=== PATIENT | female | born 1985 | race Two or more races ===

== ENCOUNTER 2017-06-30 18:12 | Emergency (ER) | payer MEDICAID ==
[~2017-06-30] VITALS: Ht 149.9 cm; Wt 70.3 kg
[2017-06-30 19:23] VITALS: BP 113/79
[2017-06-30 21:03] LABS: Urine Bilirubin Negative (Negative); Urine Blood Negative /uL (Negative); Urine Color Yellow (Yellow); Urine Glucose Normal (Normal); Urine Ketone Negative (Negative); Urine Mucus FEW (None Seen); Urine Nitrite Negative (Negative); Urine RBC 5 /hpf (0 - 4); Urine Squamous Epithelial Cell FEW /hpf (<5); Urine pH 5.5 (5.0-8.0)
[2017-06-30 21:16] LABS: Basophils # (auto) 0.1 uL; Basophils % (auto) 1.1 % (0.0-2.0); Eosinophils # (auto) 0 uL; Eosinophils % (auto) 0.1 % (0.0-7.0); Hematocrit 39.3 % (36.0-46.0); Hemoglobin 12.9 g/dL (12.2-16.2); Lymphocytes # (auto) 1.5 uL; Lymphocytes % (auto) 11.4 % (10.0-50.0); Mean Corpuscular Hemoglobin 27.9 pg (28.0-32.0); Mean Corpuscular Hgb Conc. 32.9 g/dL (32.0-36.0); Mean Corpuscular Volume 84.9 fL (80.0-100.0); Mean Platelet Volume 6.8 fL (6.9-10.8); Monocytes # (auto) 0.4 uL; Monocytes % (auto) 2.7 % (0.0-12.0); Neutrophils # (auto) 11.4 uL; Neutrophils % (auto) 84.7 % (37.0-80.0); Platelet Count (auto) 417 10^3/uL (140-450); Red Cell Distribution Width 13.5 % (11.8-14.3); White Blood Cell 13.4 10^3/uL (4.4-10.8)
[2017-06-30 21:34] LABS: Albumin 3.8 g/dL (3.4-5.0); Anion Gap 7 (5-15); Aspartate Aminotransferase 93 U/L (15-37); Blood Urea Nitrogen 13 mg/dL (7-18); Calcium 8.7 mg/dL (8.5-10.1); Carbon Dioxide 28 mmol/L (21-32); Chloride 105 mmol/L (98-107); GFR African American 176 mL/min; GFR Non-African American 145 mL/min; Glucose 125 mg/dL (74-106); Magnesium 2.2 mg/dL (1.6-2.6); Potassium 4.3 mmol/L (3.5-5.1); Sodium 140 mmol/L (136-145)
[2017-06-30 21:38] LABS: Alkaline Phosphatase 106 U/L (45-117); Bilirubin, Total 0.3 mg/dL (0.2-1.0); Total Protein 7.9 g/dL (6.4-8.2)
== END 2017-07-01 05:14 | disposition left against medical advice (07) ==
LOC: ER 18:49
DX: R07.9 Chest pain, unspecified (principal); R51 Headache; Z53.21 Procedure and treatment not carried out due to patient leaving prior to being seen by health care provider
CPT/HCPCS: 36415; 70450; 71010; 80053; 81001; 83735; 84443; 84484; 85025; 93005

== ENCOUNTER 2017-11-25 08:19 | Inpatient (IN) | payer MEDICAID ==
[~2017-11-25] VITALS: Ht 149.9 cm; Wt 78.2 kg
[2017-11-25] MEDS ORDERED: SODIUM CHLORIDE 0.9% 1,000 ML IV ONE ×2 (08:53)
[2017-11-25] MEDS ORDERED: ONDANSETRON HCL 4 MG/2 ML VIAL IV ONE (09:00)
[2017-11-25] MEDS ORDERED: NALBUPHINE HCL 10 MG/1ml INJECTION IV ONE (09:00)
[2017-11-25] MEDS ORDERED: IOHEXOL 300 MG/ML 100ML BOTTLE IJ ONE (09:13)
[2017-11-25 09:19] LABS: Basophils # (auto) 0.1 uL; Eosinophils # (auto) 0.2 uL; Eosinophils % (auto) 2.2 % (0.0-7.0); Hematocrit 39.4 % (36.0-46.0); Lymphocytes # (auto) 1.8 uL; Lymphocytes % (auto) 20.9 % (10.0-50.0); Mean Corpuscular Hemoglobin 27.4 pg (28.0-32.0); Mean Corpuscular Hgb Conc. 32.9 g/dL (32.0-36.0); Mean Corpuscular Volume 83.3 fL (80.0-100.0); Monocytes # (auto) 0.5 uL; Monocytes % (auto) 5.5 % (0.0-12.0); Neutrophils # (auto) 6.2 uL; Neutrophils % (auto) 70.4 % (37.0-80.0); Platelet Count (auto) 383 10^3/uL (140-450); Red Blood Cells 4.73 10^6/uL (4.0-5.20); Red Cell Distribution Width 13.4 % (11.8-14.3); White Blood Cell 8.8 10^3/uL (4.4-10.8)
[2017-11-25 09:40] LABS: Albumin 3.5 g/dL (3.4-5.0); BUN/Creatinine Ratio 25.5; Bilirubin, Total 0.3 mg/dL (0.2-1.0); Calcium 8.4 mg/dL (8.5-10.1); Potassium 3.8 mmol/L (3.5-5.1); Total Protein 7.4 g/dL (6.4-8.2)
[2017-11-25] MEDS ORDERED: GASTROGRAFIN 120 ML SOL ONE (12:56)
[2017-11-25] MEDS ORDERED: FLEET ENEMA(ADULT) 135 ML PR ONE (13:15)
[2017-11-25] MEDS ORDERED: ACETAMINOPHEN 500 MG TAB PO PRN (14:15)
[2017-11-25] MEDS ORDERED: cefTRIAXone 1GM/10ml IVPUSH 10 ML IV ONE (14:15)
[2017-11-25] MEDS: SODIUM CHLORIDE 0.9% 1,000 ML IV SCH ×2 (14:15→23:57)
[2017-11-25] MEDS ORDERED: LORazepam 0.5 MG TAB PO PRN (14:15)
[2017-11-25] MEDS: FAMOTIDINE (10MG/ML) 2ML VL IV SCH (14:15)
[2017-11-25] MEDS: MORPHINE SULFATE 4 MG/ML SYR/VIAL IV PRN (15:03)
[2017-11-25] MEDS: PROMETHAZINE HCL 25 MG/ML 1ML IV PRN (15:03)
[2017-11-25 16:42] VITALS: BP 112/60
[2017-11-25] MEDS: metroNIDAZOLE 500MG/100ML 100 ML IV SCH ×2 (18:08→23:57)
[2017-11-25] MEDS: HYDROcodone-ACET 5/325MG TAB PO PRN (18:27)
[2017-11-25 22:00] VITALS: BP 96/58
[2017-11-26] MEDS: HYDROcodone-ACET 5/325MG TAB PO PRN ×2 (04:00→11:30)
[2017-11-26] MEDS: metroNIDAZOLE 500MG/100ML 100 ML IV SCH ×3 (04:41→17:50)
[2017-11-26] MEDS: FAMOTIDINE (10MG/ML) 2ML VL IV SCH ×2 (04:41→14:44)
[2017-11-26 05:00] VITALS: BP 104/55
[2017-11-26 07:51] VITALS: BP 96/61
[2017-11-26] MEDS: SODIUM CHLORIDE 0.9% 1,000 ML IV SCH ×2 (09:00→20:36)
[2017-11-26] MEDS: cefTRIAXone 1GM/10ml IVPUSH 10 ML IV SCH (09:23)
[2017-11-26 09:44] LABS: INR 0.98 (0.9-1.15); Partial Thromboplastin Time 26.7 sec (22.64-33.71); Prothrombin Time 10.7 sec (9.37-12.3)
[2017-11-26 12:27] VITALS: BP 109/70
[2017-11-26] MEDS: MORPHINE SULFATE 4 MG/ML SYR/VIAL IV PRN (14:45)
[2017-11-26 17:22] VITALS: BP 125/58
[2017-11-26] MEDS: PROMETHAZINE HCL 25 MG/ML 1ML IV PRN (17:49)
[2017-11-26] MEDS ORDERED: PROMETHAZINE HCL 25 MG/ML 1ML IV ONE (19:00)
[2017-11-26 22:00] VITALS: BP 94/48
[2017-11-27] MEDS: metroNIDAZOLE 500MG/100ML 100 ML IV SCH ×4 (00:02→18:17)
[2017-11-27] MEDS: FAMOTIDINE (10MG/ML) 2ML VL IV SCH ×2 (03:00→14:44)
[2017-11-27 05:00] VITALS: BP 97/54
[2017-11-27] MEDS: SODIUM CHLORIDE 0.9% 1,000 ML IV SCH ×2 (06:18→16:05)
[2017-11-27] MEDS: HYDROcodone-ACET 5/325MG TAB PO PRN ×2 (07:50→14:44)
[2017-11-27 09:00] VITALS: BP 104/66
[2017-11-27] MEDS: cefTRIAXone 1GM/10ml IVPUSH 10 ML IV SCH (09:24)
[2017-11-27 13:00] VITALS: BP 101/63
[2017-11-27 17:00] VITALS: BP 105/67
[2017-11-27] MEDS: TEMAZEPAM 15 MG CAP PO PRN (20:47)
[2017-11-27 22:00] VITALS: BP 110/73
[2017-11-28] MEDS: SODIUM CHLORIDE 0.9% 1,000 ML IV SCH ×3 (00:44→23:03)
[2017-11-28] MEDS: metroNIDAZOLE 500MG/100ML 100 ML IV SCH ×4 (00:44→17:28)
[2017-11-28] MEDS: FAMOTIDINE (10MG/ML) 2ML VL IV SCH ×2 (02:15→13:32)
[2017-11-28 05:00] VITALS: BP 95/64
[2017-11-28] MEDS: cefTRIAXone 1GM/10ml IVPUSH 10 ML IV SCH (08:55)
[2017-11-28] MEDS: HYDROcodone-ACET 5/325MG TAB PO PRN (08:56)
[2017-11-28 09:00] VITALS: BP 106/60
[2017-11-28 12:53] VITALS: BP 114/66
[2017-11-28 17:00] VITALS: BP 115/64
[2017-11-28] MEDS ORDERED: LEVOFLOXACIN 500MG 100 ML IV ONE (17:45)
[2017-11-28 22:00] VITALS: BP 111/68
[2017-11-28] MEDS: MORPHINE SULFATE 4 MG/ML SYR/VIAL IV PRN (23:03)
[2017-11-28] MEDS: TEMAZEPAM 15 MG CAP PO PRN (23:41)
[2017-11-29] MEDS: metroNIDAZOLE 500MG/100ML 100 ML IV SCH ×4 (00:09→18:05)
[2017-11-29 05:00] VITALS: BP 93/57
[2017-11-29 06:00] LABS: Basophils # (auto) 0 uL; Basophils % (auto) 0.3 % (0.0-2.0); Eosinophils # (auto) 0.3 uL; Eosinophils % (auto) 2.6 % (0.0-7.0); Hematocrit 37.3 % (36.0-46.0); Hemoglobin 12.3 g/dL (12.2-16.2); Lymphocytes # (auto) 2.2 uL; Lymphocytes % (auto) 22.2 % (10.0-50.0); Mean Corpuscular Hemoglobin 27.8 pg (28.0-32.0); Mean Corpuscular Volume 84.1 fL (80.0-100.0); Monocytes # (auto) 0.7 uL; Monocytes % (auto) 7.3 % (0.0-12.0); Neutrophils # (auto) 6.7 uL; Neutrophils % (auto) 67.6 % (37.0-80.0); Nucleated Red Blood Cells % 0.1 %; Platelet Count (auto) 350 10^3/uL (140-450); Red Blood Cells 4.43 10^6/uL (4.0-5.20); Red Cell Distribution Width 13.7 % (11.8-14.3)
[2017-11-29] MEDS: FAMOTIDINE (10MG/ML) 2ML VL IV SCH ×2 (06:06→15:31)
[2017-11-29 06:12] LABS: INR 1.03 (0.9-1.15); Partial Thromboplastin Time 27.8 sec (22.64-33.71); Prothrombin Time 11.2 sec (9.37-12.3)
[2017-11-29 06:16] LABS: Albumin 2.7 g/dL (3.4-5.0); Calcium 7.6 mg/dL (8.5-10.1); Potassium 3.1 mmol/L (3.5-5.1)
[2017-11-29 06:21] LABS: Bilirubin, Total 0.2 mg/dL (0.2-1.0); Total Protein 5.9 g/dL (6.4-8.2)
[2017-11-29] MEDS ORDERED: BUPIVACAINE 0.25% INJ 50ML VIAL ONE (06:44)
[2017-11-29] MEDS ORDERED: ceFAZolin 1GM VL ONE (06:44)
[2017-11-29] MEDS ORDERED: POVIDONE IODINE 10 % TOPICAL OINT 30GM TOP ONE (06:44)
[2017-11-29] MEDS ORDERED: LIDOCAINE W/ EPINEPHRINE 2% INJ 20ML VIAL ONE (06:44)
[2017-11-29] MEDS ORDERED: BUPIVACAINE W/ EPINEPH 0.25% INJ 50ML MDV ONE (06:44)
[2017-11-29] MEDS ORDERED: LIDOCAINE 1% HCL (LOCAL ANESTH.) INJ 20ML MDV ONE ×2 (06:44→07:17)
[2017-11-29] MEDS ORDERED: ceFAZolin 1GM/50ML 50 ML IV ONE (07:12)
[2017-11-29] MEDS ORDERED: SUCCINYLCHOLINE CHLORIDE 20 MG/ML 10ML VIAL IV ONE (07:17)
[2017-11-29] MEDS ORDERED: MIDAZOLAM HCL 1MG/1ML-2 ML VIAL ONE (07:20)
[2017-11-29] MEDS ORDERED: fentaNYL CITRATE 100 MCG/2 ML VL ONE (07:20)
[2017-11-29] MEDS ORDERED: ROCURONIUM 10MG/ML 10ML VIAL IV ONE (07:21)
[2017-11-29] MEDS ORDERED: PROPOFOL 10 MG/ML 20 ML IV ONE (07:21)
[2017-11-29] MEDS ORDERED: METOCLOPRAMIDE HCL 5MG/ml INJ 2ml VIAL ONE (07:25)
[2017-11-29] MEDS ORDERED: ONDANSETRON HCL 4 MG/2 ML VIAL IV ONE (08:00)
[2017-11-29] MEDS ORDERED: KETOROLAC TROMETH 30 MG/ML 1ML VIAL ONE (08:00)
[2017-11-29] MEDS: SODIUM CHLORIDE 0.9% 1,000 ML IV SCH ×2 (08:05→18:05)
[2017-11-29] MEDS ORDERED: GLYCOPYRROLATE 0.2 MG/ML 1ML VIAL ONE (08:08)
[2017-11-29] MEDS ORDERED: NEOSTIGMINE 1 MG/ML INJ (10mg/10ML VIAL) ONE (08:08)
[2017-11-29] MEDS ORDERED: POTASSIUM CHL 20MEQ/100ML 100 ML IV ONE (08:15)
[2017-11-29] MEDS: MORPHINE SULFATE 4 MG/ML SYR/VIAL IV PRN ×4 (09:16→16:27)
[2017-11-29 10:00] VITALS: BP 121/80
[2017-11-29 13:00] VITALS: BP 110/72
[2017-11-29] MEDS: LEVOFLOXACIN 500MG 100 ML IV SCH (15:32)
[2017-11-29 16:51] VITALS: BP 107/68
[2017-11-29] MEDS: PROMETHAZINE HCL 25 MG/ML 1ML IV PRN (18:04)
[2017-11-29] MEDS: HYDROcodone-ACET 5/325MG TAB PO PRN (18:05)
[2017-11-29 22:00] VITALS: BP 100/67
[2017-11-30] MEDS: metroNIDAZOLE 500MG/100ML 100 ML IV SCH ×5 (00:28→23:51)
[2017-11-30] MEDS: PROMETHAZINE HCL 25 MG/ML 1ML IV PRN ×3 (00:28→22:32)
[2017-11-30] MEDS: HYDROcodone-ACET 5/325MG TAB PO PRN ×2 (00:28→13:42)
[2017-11-30] MEDS: FAMOTIDINE (10MG/ML) 2ML VL IV SCH ×2 (02:09→13:42)
[2017-11-30] MEDS: SODIUM CHLORIDE 0.9% 1,000 ML IV SCH ×3 (04:22→23:52)
[2017-11-30 05:00] VITALS: BP 92/57
[2017-11-30 06:36] LABS: BUN/Creatinine Ratio 13.6; Calcium 7.7 mg/dL (8.5-10.1); Potassium 3.5 mmol/L (3.5-5.1)
[2017-11-30] MEDS: MORPHINE SULFATE 4 MG/ML SYR/VIAL IV PRN ×2 (08:12→22:34)
[2017-11-30 09:00] VITALS: BP 124/84
[2017-11-30] MEDS: LEVOFLOXACIN 500MG 100 ML IV SCH (09:01)
[2017-11-30] MEDS ORDERED: LACTULOSE 20Gm/30ML SOLN PO PRN (12:45)
[2017-11-30 13:00] VITALS: BP 122/73
[2017-11-30 17:00] VITALS: BP 137/87
[2017-11-30] MEDS: BOOST PLUS 8 ounce PO SCH (17:35)
[2017-11-30 22:00] VITALS: BP 104/68
[2017-12-01] MEDS: FAMOTIDINE (10MG/ML) 2ML VL IV SCH ×2 (02:22→12:40)
[2017-12-01 05:26] VITALS: BP 110/69
[2017-12-01 05:58] LABS: Basophils # (auto) 0 uL; Basophils % (auto) 0.1 % (0.0-2.0); Eosinophils # (auto) 0.4 uL; Eosinophils % (auto) 4.3 % (0.0-7.0); Hematocrit 37.4 % (36.0-46.0); Hemoglobin 12.4 g/dL (12.2-16.2); Lymphocytes # (auto) 1.6 uL; Lymphocytes % (auto) 15.5 % (10.0-50.0); Mean Corpuscular Hgb Conc. 33.2 g/dL (32.0-36.0); Mean Corpuscular Volume 84.3 fL (80.0-100.0); Monocytes # (auto) 0.5 uL; Monocytes % (auto) 4.7 % (0.0-12.0); Neutrophils # (auto) 7.8 uL; Neutrophils % (auto) 75.4 % (37.0-80.0); Platelet Count (auto) 379 10^3/uL (140-450); Red Blood Cells 4.43 10^6/uL (4.0-5.20); Red Cell Distribution Width 13.9 % (11.8-14.3); White Blood Cell 10.4 10^3/uL (4.4-10.8)
[2017-12-01] MEDS: metroNIDAZOLE 500MG/100ML 100 ML IV SCH ×3 (06:01→16:30)
[2017-12-01 06:10] LABS: BUN/Creatinine Ratio 15.4; Potassium 3.2 mmol/L (3.5-5.1)
[2017-12-01] MEDS: BOOST PLUS 8 ounce PO SCH ×3 (08:00→17:44)
[2017-12-01 08:14] VITALS: BP 108/69
[2017-12-01 08:34] VITALS: BP 108/69
[2017-12-01] MEDS: SODIUM CHLORIDE 0.9% 1,000 ML IV SCH (09:12)
[2017-12-01] MEDS: LEVOFLOXACIN 500MG 100 ML IV SCH (09:12)
[2017-12-01] MEDS: HYDROcodone-ACET 5/325MG TAB PO PRN ×2 (10:41→16:30)
[2017-12-01 11:51] VITALS: BP 118/79
[2017-12-01 16:34] VITALS: BP 113/48
[2017-12-01] MEDS: POTASSIUM CHL 20 Meq TABLET PO SCH ×2 (17:50→22:19)
[2017-12-01 21:35] VITALS: BP 109/79
[2017-12-01] MEDS: MORPHINE SULFATE 4 MG/ML SYR/VIAL IV PRN (22:19)
[2017-12-01] MEDS: TEMAZEPAM 15 MG CAP PO PRN (22:26)
[2017-12-02] MEDS: SODIUM CHLORIDE 0.9% 1,000 ML IV SCH ×3 (00:37→16:05)
[2017-12-02] MEDS: metroNIDAZOLE 500MG/100ML 100 ML IV SCH ×3 (00:38→12:00)
[2017-12-02 05:00] VITALS: BP 104/56
[2017-12-02] MEDS: HYDROcodone-ACET 5/325MG TAB PO PRN ×2 (05:35→12:21)
[2017-12-02] MEDS: FAMOTIDINE (10MG/ML) 2ML VL IV SCH ×2 (05:35→14:15)
[2017-12-02 07:53] VITALS: BP 102/59
[2017-12-02] MEDS: BOOST PLUS 8 ounce PO SCH ×2 (10:09→12:20)
[2017-12-02] MEDS: POTASSIUM CHL 20 Meq TABLET PO SCH (10:10)
[2017-12-02] MEDS: LEVOFLOXACIN 500MG 100 ML IV SCH (10:10)
[2017-12-02] MEDS: PROMETHAZINE HCL 25 MG/ML 1ML IV PRN (12:20)
[2017-12-02 12:31] VITALS: BP 106/71
[2017-12-02 15:07] VITALS: BP 106/71
== END 2017-12-02 17:16 | disposition home or self-care (01) | DRG 228 ==
LOC: ER 08:19 → OVERFLOW 08:20 → WEST WING 15:09
PROVIDERS: ADMIT Internal Medicine; ATTEND Internal Medicine Pulmonary Disease
PROC: 0DTU0ZZ Resection of Omentum, Open Approach (ICD-10-PCS; 2017-11-29)
PROC: 0YQ60ZZ Repair Left Inguinal Region, Open Approach (ICD-10-PCS; principal; 2017-11-29 07:00)
DX: K40.90 Unilateral inguinal hernia, without obstruction or gangrene, not specified as recurrent (principal); K56.2 Volvulus; E44.0 Moderate protein-calorie malnutrition; E66.9 Obesity, unspecified; N39.0 Urinary tract infection, site not specified; E87.6 Hypokalemia; Z90.49 Acquired absence of other specified parts of digestive tract; Z83.3 Family history of diabetes mellitus; Z80.8 Family history of malignant neoplasm of other organs or systems; Z68.34 Body mass index [BMI] 34.0-34.9, adult
CPT/HCPCS: 36415; 71045; 74177; 74250; 80048; 80053; 81025; 82150; 83605; 83690; 84132; 85025; 85610; 85730; 86850; 86900; 86901; 87040; 87086; 87088; 87186; 88302; 93005; 93306; 96361; 96374; 96375; J0330; J0690; J1885; J1956; J2001; J2250; J2405; J2704; J3480; J3490

== ENCOUNTER 2017-12-15 01:35 | Emergency (ER) | payer MEDICAID ==
[~2017-12-15] VITALS: Ht 149.9 cm; Wt 73.0 kg
[2017-12-15 01:44] VITALS: BP 144/91
[2017-12-15 02:58] LABS: Basophils # (auto) 0.1 uL; Basophils % (auto) 1.3 % (0.0-2.0); Eosinophils # (auto) 0.4 uL; Lymphocytes # (auto) 2.8 uL; Monocytes # (auto) 0.7 uL; Neutrophils % (auto) 62.5 % (37.0-80.0); Red Cell Distribution Width 13.8 % (11.8-14.3)
[2017-12-15 02:59] LABS: Eosinophils % (auto) 3.3 % (0.0-7.0); Hematocrit 38.6 % (36.0-46.0); Mean Corpuscular Hemoglobin 28.1 pg (28.0-32.0); Mean Corpuscular Hgb Conc. 33.6 g/dL (32.0-36.0); Mean Corpuscular Volume 83.8 fL (80.0-100.0); Monocytes % (auto) 6.9 % (0.0-12.0); Neutrophils # (auto) 6.8 uL; Platelet Count (auto) 449 10^3/uL (140-450); Red Blood Cells 4.61 10^6/uL (4.0-5.20); White Blood Cell 10.8 10^3/uL (4.4-10.8)
[2017-12-15 03:15] LABS: Albumin 3.9 g/dL (3.4-5.0); BUN/Creatinine Ratio 25.5; Potassium 4.1 mmol/L (3.5-5.1)
[2017-12-15 03:17] LABS: Bilirubin, Total 0.3 mg/dL (0.2-1.0); Total Protein 7.8 g/dL (6.4-8.2)
[2017-12-15] MEDS ORDERED: IBUPROFEN 800 MG TAB PO ONE (07:30)
== END 2017-12-15 07:37 | disposition home or self-care (01) ==
LOC: ER 01:36
DX: R10.9 Unspecified abdominal pain (principal); Z48.01 Encounter for change or removal of surgical wound dressing; Z90.49 Acquired absence of other specified parts of digestive tract
CPT/HCPCS: 36415; 80053; 85025

== ENCOUNTER 2017-12-16 20:46 | Emergency (ER) | payer MEDICAID ==
[~2017-12-16] VITALS: Ht 149.9 cm; Wt 74.8 kg
[2017-12-16 21:37] LABS: Urine Bacteria NONE SEEN /hpf (None Seen); Urine Blood Negative /uL (Negative); Urine Mucus FEW (None Seen); Urine WBC 1 /hpf (0 - 5)
[2017-12-16 22:31] LABS: Basophils # (auto) 0.1 uL; Basophils % (auto) 0.9 % (0.0-2.0); Eosinophils # (auto) 0.3 uL; Eosinophils % (auto) 3.1 % (0.0-7.0); Hematocrit 40.4 % (36.0-46.0); Hemoglobin 13.1 g/dL (12.2-16.2); Lymphocytes # (auto) 2.9 uL; Lymphocytes % (auto) 25.8 % (10.0-50.0); Mean Corpuscular Hemoglobin 27.4 pg (28.0-32.0); Mean Corpuscular Hgb Conc. 32.5 g/dL (32.0-36.0); Mean Corpuscular Volume 84.3 fL (80.0-100.0); Monocytes # (auto) 0.8 uL; Monocytes % (auto) 7.2 % (0.0-12.0); Nucleated Red Blood Cells % 0.1 %; Platelet Count (auto) 440 10^3/uL (140-450); White Blood Cell 11.1 10^3/uL (4.4-10.8)
[2017-12-16 23:01] LABS: Albumin 3.8 g/dL (3.4-5.0); BUN/Creatinine Ratio 22.2; Bilirubin, Total 0.1 mg/dL (0.2-1.0); Calcium 8.8 mg/dL (8.5-10.1); Total Protein 7.7 g/dL (6.4-8.2)
[2017-12-17] MEDS ORDERED: cefTRIAXone SOD 1,000 MG VL IM ONE (02:45)
[2017-12-17 03:30] VITALS: BP 115/78
[2017-12-17] MEDS ORDERED: HYDROcodone-ACET 10/325MG TAB PO ONE (05:00)
== END 2017-12-17 07:09 | disposition home or self-care (01) ==
LOC: ER 20:46
DX: R10.9 Unspecified abdominal pain (principal); Z98.890 Other specified postprocedural states; Z48.01 Encounter for change or removal of surgical wound dressing; Z90.49 Acquired absence of other specified parts of digestive tract
CPT/HCPCS: 36415; 80053; 81001; 85025; 96372; 99284; J0696

== ENCOUNTER 2017-12-29 11:40 | Emergency (ER) | payer MEDICAID ==
[~2017-12-29] VITALS: Ht 149.9 cm; Wt 72.6 kg
[2017-12-29 11:58] VITALS: BP 128/83
== END 2017-12-29 13:11 | disposition home or self-care (01) ==
LOC: ER 11:40
DX: H60.93 Unspecified otitis externa, bilateral (principal); Z48.01 Encounter for change or removal of surgical wound dressing

== ENCOUNTER 2018-06-04 12:32 | Emergency (ER) | payer MEDICAID ==
[~2018-06-04] VITALS: Ht 149.9 cm; Wt 72.6 kg
[2018-06-04] MEDS ORDERED: SODIUM CHLORIDE 0.9% 1,000 ML IVB ONE (13:56)
[2018-06-04] MEDS ORDERED: KETOROLAC TROMETH 30 MG/ML 1ML VIAL IV ONE (14:00)
[2018-06-04] MEDS ORDERED: ONDANSETRON HCL 4 MG/2 ML VIAL IV ONE (14:00)
[2018-06-04 14:38] LABS: Urine Bacteria MANY /hpf (None Seen); Urine Blood Negative /uL (Negative); Urine Mucus FEW (None Seen); Urine Sperm PRESENT /hpf (None Seen); Urine WBC 6 /hpf (0 - 5)
[2018-06-04 16:14] LABS: Albumin 3.6 g/dL (3.4-5.0); BUN/Creatinine Ratio 18.2; Bilirubin, Total 0.5 mg/dL (0.2-1.0); Calcium 8.6 mg/dL (8.5-10.1); Potassium 3.4 mmol/L (3.5-5.1); Total Protein 7.9 g/dL (6.4-8.2)
[2018-06-04 16:56] VITALS: BP 112/65
== END 2018-06-04 17:03 | disposition home or self-care (01) ==
LOC: ER 12:32
DX: R10.31 Right lower quadrant pain (principal); R11.2 Nausea with vomiting, unspecified; Z90.49 Acquired absence of other specified parts of digestive tract; Z98.51 Tubal ligation status
CPT/HCPCS: 36415; 74176; 80053; 81001; 83690; 94761; 96361; 96374; 96375; 99285; J1885; J2405; J7030

== ENCOUNTER 2018-07-12 08:29 | Emergency (ER) | payer MEDICAID ==
[~2018-07-12] VITALS: Ht 149.9 cm; Wt 72.6 kg
[2018-07-12 09:26] LABS: Basophils # (auto) 0.1 uL; Basophils % (auto) 0.7 % (0.0-2.0); Eosinophils # (auto) 0 uL; Eosinophils % (auto) 0.3 % (0.0-7.0); Hematocrit 38.1 % (36.0-46.0); Hemoglobin 12.5 g/dL (12.2-16.2); Lymphocytes # (auto) 1.1 uL; Lymphocytes % (auto) 12.6 % (10.0-50.0); Mean Corpuscular Hemoglobin 27.4 pg (28.0-32.0); Mean Corpuscular Hgb Conc. 32.8 g/dL (32.0-36.0); Mean Corpuscular Volume 83.5 fL (80.0-100.0); Monocytes # (auto) 0.4 uL; Monocytes % (auto) 4.8 % (0.0-12.0); Neutrophils # (auto) 7.1 uL; Neutrophils % (auto) 81.6 % (37.0-80.0); Platelet Count (auto) 354 10^3/uL (140-450); Red Blood Cells 4.56 10^6/uL (4.0-5.20); Red Cell Distribution Width 14.1 % (11.8-14.3); White Blood Cell 8.8 10^3/uL (4.4-10.8)
[2018-07-12 09:44] LABS: Albumin 3.4 g/dL (3.4-5.0); Calcium 8.2 mg/dL (8.5-10.1); Magnesium 2.1 mg/dL (1.6-2.6); Potassium 3.5 mmol/L (3.5-5.1)
[2018-07-12 09:49] LABS: Bilirubin, Total 0.4 mg/dL (0.2-1.0); Total Protein 7.4 g/dL (6.4-8.2)
[2018-07-12 10:04] LABS: Urine Bacteria MOD /hpf (None Seen); Urine Blood 1+ /uL (Negative); Urine Mucus FEW (None Seen); Urine Specific Gravity 1.033 (1.001-1.035); Urine WBC 44 /hpf (0 - 5)
[2018-07-12] MEDS ORDERED: SODIUM CHLORIDE 0.9% 1,000 ML IVB ONE (10:14)
[2018-07-12] MEDS ORDERED: KETOROLAC TROMETH 30 MG/ML 1ML VIAL IV ONE (10:15)
[2018-07-12] MEDS ORDERED: PROMETHAZINE HCL 25 MG/ML 1ML IV PRN (10:15)
[2018-07-12 12:10] VITALS: BP 101/65
== END 2018-07-12 15:46 | disposition home or self-care (01) ==
LOC: ER 08:31
DX: N39.0 Urinary tract infection, site not specified (principal); K76.0 Fatty (change of) liver, not elsewhere classified; M19.90 Unspecified osteoarthritis, unspecified site; Z90.49 Acquired absence of other specified parts of digestive tract; Z98.51 Tubal ligation status
CPT/HCPCS: 36415; 76705; 80053; 81001; 81025; 82150; 83690; 83735; 84443; 85025; 96361; 96374; 96375; 99285; J1885; J2550

== ENCOUNTER 2018-07-13 15:54 | Emergency (ER) | payer MEDICAID ==
[~2018-07-13] VITALS: Ht 149.9 cm; Wt 72.6 kg
[2018-07-13] MEDS ORDERED: ASPirin 81 mg TAB PO ONE (16:15)
[2018-07-13 16:50] LABS: Basophils # (auto) 0 uL; Basophils % (auto) 0.5 % (0.0-2.0); Eosinophils # (auto) 0.2 uL; Eosinophils % (auto) 2.1 % (0.0-7.0); Hematocrit 37.4 % (36.0-46.0); Hemoglobin 12.3 g/dL (12.2-16.2); Lymphocytes # (auto) 2.7 uL; Lymphocytes % (auto) 30.7 % (10.0-50.0); Mean Corpuscular Hemoglobin 27.4 pg (28.0-32.0); Mean Corpuscular Hgb Conc. 32.9 g/dL (32.0-36.0); Mean Corpuscular Volume 83.4 fL (80.0-100.0); Monocytes # (auto) 0.5 uL; Monocytes % (auto) 5.9 % (0.0-12.0); Neutrophils # (auto) 5.3 uL; Neutrophils % (auto) 60.8 % (37.0-80.0); Platelet Count (auto) 357 10^3/uL (140-450); Red Blood Cells 4.49 10^6/uL (4.0-5.20); Red Cell Distribution Width 13.9 % (11.8-14.3); White Blood Cell 8.7 10^3/uL (4.4-10.8)
[2018-07-13 17:02] LABS: Blood Urea Nitrogen 11 mg/dL (7-18); Calcium 8.4 mg/dL (8.5-10.1); Chloride 104 mmol/L (98-107); Potassium 3.5 mmol/L (3.5-5.1); Sodium 139 mmol/L (136-145)
[2018-07-13 17:10] LABS: Alanine Aminotransferase 94 U/L (13-56); Albumin 3.4 g/dL (3.4-5.0); Alkaline Phosphatase 103 U/L (45-117); Anion Gap 6 (5-15); Aspartate Aminotransferase 36 U/L (15-37); Bilirubin, Total 0.2 mg/dL (0.2-1.0); Carbon Dioxide 29 mmol/L (21-32); GFR African American 145 mL/min; GFR Non-African American 120 mL/min; Glucose 92 mg/dL (74-106); Total Protein 7.3 g/dL (6.4-8.2)
[2018-07-13 17:18] VITALS: BP 113/72
== END 2018-07-13 17:19 | disposition home or self-care (01) ==
LOC: ER 15:57
DX: R07.89 Other chest pain (principal); M19.90 Unspecified osteoarthritis, unspecified site; E07.9 Disorder of thyroid, unspecified; M54.9 Dorsalgia, unspecified; G89.29 Other chronic pain
CPT/HCPCS: 36415; 80053; 84484; 85025; 93005

== ENCOUNTER 2018-09-21 15:26 | Emergency (ER) | payer MEDICAID ==
[~2018-09-21] VITALS: Ht 149.9 cm; Wt 72.6 kg
[2018-09-21 16:24] LABS: Basophils # (auto) 0.1 uL; Basophils % (auto) 0.7 % (0.0-2.0); Eosinophils # (auto) 0.3 uL; Eosinophils % (auto) 3.2 % (0.0-7.0); Hematocrit 41.2 % (36.0-46.0); Hemoglobin 13.7 g/dL (12.2-16.2); Lymphocytes # (auto) 2.4 uL; Lymphocytes % (auto) 25.5 % (10.0-50.0); Mean Corpuscular Hemoglobin 27.7 pg (28.0-32.0); Mean Corpuscular Hgb Conc. 33.2 g/dL (32.0-36.0); Mean Corpuscular Volume 83.5 fL (80.0-100.0); Monocytes # (auto) 0.6 uL; Monocytes % (auto) 6.8 % (0.0-12.0); Neutrophils % (auto) 63.8 % (37.0-80.0); Platelet Count (auto) 422 10^3/uL (140-450); Red Blood Cells 4.93 10^6/uL (4.0-5.20); Red Cell Distribution Width 14.5 % (11.8-14.3); White Blood Cell 9.4 10^3/uL (4.4-10.8)
[2018-09-21] MEDS ORDERED: LIDOCAINE VISCOUS 2% 15ML UD PO ONE (16:30)
[2018-09-21] MEDS ORDERED: ALUM & MAG HYDROX-SIMETH LIQ(MAALOX) 30 ML PO ONE (16:30)
[2018-09-21] MEDS ORDERED: DONNATAL 5ml ORAL Elix (BELLADONNA ALK-PHENOBARB) PO ONE (16:30)
[2018-09-21 16:40] LABS: Albumin 3.6 g/dL (3.4-5.0); BUN/Creatinine Ratio 23.1; Calcium 8.1 mg/dL (8.5-10.1); Potassium 3.3 mmol/L (3.5-5.1)
[2018-09-21 16:44] LABS: Bilirubin, Total 0.2 mg/dL (0.2-1.0); Total Protein 7.7 g/dL (6.4-8.2)
[2018-09-21] MEDS ORDERED: POTASSIUM EFFERVESENT TAB 25 MEQ PO ONE (17:45)
[2018-09-21 18:39] VITALS: BP 109/82
== END 2018-09-21 18:46 | disposition home or self-care (01) ==
LOC: ER 15:32
DX: K29.70 Gastritis, unspecified, without bleeding (principal); Z98.51 Tubal ligation status; Z90.49 Acquired absence of other specified parts of digestive tract
CPT/HCPCS: 36415; 74176; 80053; 85025; 93005

== ENCOUNTER 2018-10-18 14:46 | Emergency (ER) | payer MEDICAID ==
[~2018-10-18] VITALS: Ht 149.9 cm; Wt 71.7 kg
[2018-10-18 14:58] VITALS: BP 145/90
[2018-10-18 16:10] LABS: Basophils # (auto) 0 uL; Basophils % (auto) 0.6 % (0.0-2.0); Eosinophils # (auto) 0.2 uL; Eosinophils % (auto) 2.7 % (0.0-7.0); Hematocrit 43.8 % (36.0-46.0); Hemoglobin 14.4 g/dL (12.2-16.2); Lymphocytes # (auto) 1.8 uL; Mean Corpuscular Hemoglobin 27.3 pg (28.0-32.0); Mean Corpuscular Hgb Conc. 32.9 g/dL (32.0-36.0); Mean Corpuscular Volume 82.8 fL (80.0-100.0); Monocytes # (auto) 0.5 uL; Monocytes % (auto) 6.1 % (0.0-12.0); Neutrophils # (auto) 5.1 uL; Neutrophils % (auto) 66.6 % (37.0-80.0); Nucleated Red Blood Cells % 0.1 %; Platelet Count (auto) 414 10^3/uL (140-450); Red Blood Cells 5.29 10^6/uL (4.0-5.20); White Blood Cell 7.7 10^3/uL (4.4-10.8)
[2018-10-18 16:31] LABS: Albumin 3.9 g/dL (3.4-5.0); Amylase 25 U/L (25-115); Anion Gap 5 (5-15); Blood Urea Nitrogen 9 mg/dL (7-18); Calcium 9.1 mg/dL (8.5-10.1); Carbon Dioxide 27 mmol/L (21-32); Chloride 104 mmol/L (98-107); Glucose 99 mg/dL (74-106); Lipase 92 U/L (73-393); Magnesium 2.3 mg/dL (1.6-2.6); Potassium 3.6 mmol/L (3.5-5.1); Sodium 136 mmol/L (136-145)
[2018-10-18 16:35] LABS: Alanine Aminotransferase 73 U/L (13-56); Alkaline Phosphatase 117 U/L (45-117); Aspartate Aminotransferase 51 U/L (15-37); BUN/Creatinine Ratio 16.4; Bilirubin, Total 0.2 mg/dL (0.2-1.0); GFR African American > 60 mL/min; GFR Non-African American > 60 mL/min; Total Protein 8.5 g/dL (6.4-8.2)
== END 2018-10-18 21:20 | disposition left against medical advice (07) ==
LOC: ER 14:49
DX: R11.2 Nausea with vomiting, unspecified (principal); R19.7 Diarrhea, unspecified; Z53.21 Procedure and treatment not carried out due to patient leaving prior to being seen by health care provider
CPT/HCPCS: 36415; 80053; 82150; 83690; 83735; 85025

== ENCOUNTER 2018-10-27 15:48 | Emergency (ER) | payer MEDICAID ==
[~2018-10-27] VITALS: Ht 149.9 cm; Wt 72.1 kg
[2018-10-27 16:40] LABS: Urine Bacteria FEW /hpf (None Seen); Urine Blood Negative /uL (Negative); Urine WBC 2 /hpf (0 - 5)
[2018-10-27 16:58] LABS: Basophils # (auto) 0 uL; Basophils % (auto) 0.4 % (0.0-2.0); Eosinophils # (auto) 0.2 uL; Eosinophils % (auto) 2.3 % (0.0-7.0); Hematocrit 41.4 % (36.0-46.0); Hemoglobin 13.8 g/dL (12.2-16.2); Lymphocytes # (auto) 2.8 uL; Mean Corpuscular Hemoglobin 27.6 pg (28.0-32.0); Mean Corpuscular Hgb Conc. 33.3 g/dL (32.0-36.0); Mean Corpuscular Volume 82.7 fL (80.0-100.0); Monocytes # (auto) 0.6 uL; Monocytes % (auto) 5.8 % (0.0-12.0); Neutrophils # (auto) 6.7 uL; Neutrophils % (auto) 64.5 % (37.0-80.0); Nucleated Red Blood Cells % 0.1 %; Platelet Count (auto) 436 10^3/uL (140-450); Red Cell Distribution Width 13.9 % (11.8-14.3); White Blood Cell 10.3 10^3/uL (4.4-10.8)
[2018-10-27 17:20] LABS: Albumin 3.8 g/dL (3.4-5.0); Calcium 8.4 mg/dL (8.5-10.1); Potassium 3.7 mmol/L (3.5-5.1)
[2018-10-27 17:30] LABS: BUN/Creatinine Ratio 20.3; Bilirubin, Total 0.2 mg/dL (0.2-1.0); Total Protein 7.8 g/dL (6.4-8.2)
[2018-10-27] MEDS ORDERED: ONDANSETRON ODT 4 MG TAB PO ONE (19:30)
[2018-10-27 22:00] VITALS: BP 119/84
[2018-10-27] MEDS ORDERED: KETOROLAC TROMETH 60MG/2ML VIAL IM ONE (22:00)
[2018-10-27] MEDS ORDERED: cefTRIAXone W LIDOCAINE 1 GM IM IM ONE (22:00)
[2018-10-27] MEDS ORDERED: cefTRIAXone SOD 1,000 MG VL ONE (22:13)
== END 2018-10-27 22:39 | disposition home or self-care (01) ==
LOC: ER 15:50
DX: N39.0 Urinary tract infection, site not specified (principal); R07.2 Precordial pain; E03.9 Hypothyroidism, unspecified; Z90.49 Acquired absence of other specified parts of digestive tract; Z98.890 Other specified postprocedural states
CPT/HCPCS: 36415; 71046; 74176; 80053; 81001; 84484; 84702; 85025; 96372; 99284; J0696; J1885; Q0162

== ENCOUNTER 2019-01-06 21:31 | Emergency (ER) | payer MEDICAID ==
[~2019-01-06] VITALS: Ht 149.9 cm; Wt 72.6 kg
[2019-01-06 21:33] VITALS: BP 147/93
[2019-01-06 23:07] LABS: Urine Bacteria FEW /hpf (None Seen); Urine Blood Negative /uL (Negative); Urine Mucus FEW (None Seen); Urine Specific Gravity 1.028 (1.001-1.035); Urine WBC 2 /hpf (0 - 5)
[2019-01-06 23:18] LABS: Alcohol, Urine < 3.0 mg/dL (0-5); Amphetamine Screen, Urine NEGATIVE (NEGATIVE); Barbiturate Scree,Urine NEGATIVE (NEGATIVE); Benzodiazephine Screen, Urine NEGATIVE (NEGATIVE); Cannabinoid Screen, Urine NEGATIVE (NEGATIVE); Cocaine Screen, Urine NEGATIVE (NEGATIVE); Opiate Scree,Urine POSITIVE (NEGATIVE); Phencyclidine Screen, Urine NEGATIVE (NEGATIVE)
[2019-01-07 00:37] LABS: Basophils # (auto) 0.1 uL; Basophils % (auto) 0.5 % (0.0-2.0); Eosinophils # (auto) 0.2 uL; Eosinophils % (auto) 1.5 % (0.0-7.0); Hemoglobin 13.5 g/dL (12.2-16.2); Lymphocytes # (auto) 2.7 uL; Lymphocytes % (auto) 19.8 % (10.0-50.0); Mean Corpuscular Hemoglobin 27.1 pg (28.0-32.0); Mean Corpuscular Hgb Conc. 32.1 g/dL (32.0-36.0); Mean Corpuscular Volume 84.3 fL (80.0-100.0); Monocytes # (auto) 0.6 uL; Monocytes % (auto) 4.7 % (0.0-12.0); Neutrophils % (auto) 73.5 % (37.0-80.0); Nucleated Red Blood Cells % 0.1 %; Platelet Count (auto) 426 10^3/uL (140-450); Red Blood Cells 4.98 10^6/uL (4.0-5.20); Red Cell Distribution Width 14.3 % (11.8-14.3); White Blood Cell 13.6 10^3/uL (4.4-10.8)
[2019-01-07 00:45] LABS: Potassium 3.8 mmol/L (3.5-5.1)
[2019-01-07 00:49] LABS: Albumin 3.7 g/dL (3.4-5.0); BUN/Creatinine Ratio 26.9; Calcium 8.6 mg/dL (8.5-10.1)
[2019-01-07 00:52] LABS: Bilirubin, Total 0.4 mg/dL (0.2-1.0); Total Protein 7.8 g/dL (6.4-8.2)
== END 2019-01-07 06:21 | disposition left against medical advice (07) ==
LOC: ER 21:33
DX: R55 Syncope and collapse (principal); Z53.21 Procedure and treatment not carried out due to patient leaving prior to being seen by health care provider
CPT/HCPCS: 36415; 70450; 80053; 80307; 81001; 81025; 82962; 85025; 93005

== ENCOUNTER 2019-05-08 23:26 | Emergency (ER) | payer MEDICAID ==
[~2019-05-08] VITALS: Ht 149.9 cm; Wt 72.6 kg
[2019-05-08 23:41] VITALS: BP 141/93
[2019-05-08 23:52] LABS: Basophils # (auto) 0.1 uL; Basophils % (auto) 1.4 % (0.0-2.0); Eosinophils # (auto) 0.2 uL; Eosinophils % (auto) 2.4 % (0.0-7.0); Hematocrit 38.7 % (36.0-46.0); Hemoglobin 13.2 g/dL (12.2-16.2); Lymphocytes # (auto) 2.9 uL; Lymphocytes % (auto) 31.2 % (10.0-50.0); Mean Corpuscular Hemoglobin 28.3 pg (28.0-32.0); Mean Corpuscular Hgb Conc. 34.1 g/dL (32.0-36.0); Monocytes # (auto) 0.6 uL; Monocytes % (auto) 6.5 % (0.0-12.0); Neutrophils # (auto) 5.5 uL; Neutrophils % (auto) 58.5 % (37.0-80.0); Nucleated Red Blood Cells % 0.1 %; Platelet Count (auto) 419 10^3/uL (140-450); Red Blood Cells 4.66 10^6/uL (4.0-5.20); White Blood Cell 9.4 10^3/uL (4.4-10.8)
[2019-05-09 00:13] LABS: Albumin 3.8 g/dL (3.4-5.0); BUN/Creatinine Ratio 21.7; Potassium 3.8 mmol/L (3.5-5.1)
[2019-05-09 00:16] LABS: Bilirubin, Total 0.3 mg/dL (0.2-1.0); Total Protein 7.6 g/dL (6.4-8.2)
[2019-05-09 00:37] LABS: Urine Amorphous Crystal FEW /hpf (None Seen); Urine Bacteria MANY /hpf (None Seen); Urine Blood 2+ /uL (Negative); Urine Mucus FEW (None Seen); Urine Specific Gravity 1.021 (1.001-1.035); Urine WBC 6 /hpf (0 - 5)
== END 2019-05-09 02:29 | disposition left against medical advice (07) ==
LOC: ER 23:31
DX: N93.9 Abnormal uterine and vaginal bleeding, unspecified (principal); Z53.21 Procedure and treatment not carried out due to patient leaving prior to being seen by health care provider
CPT/HCPCS: 36415; 80053; 81001; 81025; 85025

== ENCOUNTER 2021-03-20 15:36 | Emergency (ER) | payer MEDICAID ==
[~2021-03-20] VITALS: Ht 149.9 cm; Wt 81.6 kg
[2021-03-20 15:40] VITALS: BP 151/97
[2021-03-20] MEDS ORDERED: IOHEXOL 300 MG/ML 100ML BOTTLE IJ ONE (16:28)
[2021-03-20] MEDS ORDERED: fentaNYL CITRATE 100 MCG/2 ML VL IV ONE (16:30)
[2021-03-20] MEDS ORDERED: KETOROLAC TROMETH 30 MG/ML 1ML VIAL IV ONE (16:30)
[2021-03-20 16:58] LABS: Basophils # (auto) 0.1 10 ^3/uL (0-0.2); Basophils % (auto) 0.7 % (0.0-2.0); Eosinophils # (auto) 0.2 10 ^3/uL (0-0.8); Eosinophils % (auto) 1.7 % (0.0-7.0); Hemoglobin 13.3 g/dL (12.2-16.2); Lymphocytes # (auto) 2.8 10 ^3/uL (0.4-5.4); Lymphocytes % (auto) 23.6 % (10.0-50.0); Mean Corpuscular Hemoglobin 27.9 pg (28.0-32.0); Mean Corpuscular Hgb Conc. 33.2 g/dL (32.0-36.0); Mean Corpuscular Volume 84.1 fL (80.0-100.0); Monocytes # (auto) 0.7 10 ^3/uL (0-1.3); Monocytes % (auto) 5.6 % (0.0-12.0); Neutrophils % (auto) 68.4 % (37.0-80.0); Nucleated Red Blood Cells % 0.1 %; Red Blood Cells 4.76 10^6/uL (4.0-5.20); Red Cell Distribution Width 13.9 % (11.8-14.3); White Blood Cell 11.7 10^3/uL (4.4-10.8)
[2021-03-20 17:08] LABS: Albumin 3.8 g/dL (3.4-5.0); Anion Gap 7 (5-15); BUN/Creatinine Ratio 17.2; Blood Urea Nitrogen 11 mg/dL (7-18); Calcium 8.7 mg/dL (8.5-10.1); Carbon Dioxide 25 mmol/L (21-32); Chloride 107 mmol/L (98-107); GFR African American 136 mL/min; GFR Non-African American 112 mL/min; Glucose 104 mg/dL (74-106); Potassium 3.6 mmol/L (3.5-5.1); Sodium 139 mmol/L (136-145)
[2021-03-20 17:16] LABS: Alanine Aminotransferase 37 U/L (13-56); Alkaline Phosphatase 96 U/L (45-117); Aspartate Aminotransferase 29 U/L (15-37); Bilirubin, Total 0.1 mg/dL (0.2-1.0); Total Protein 8.1 g/dL (6.4-8.2)
== END 2021-03-20 18:16 | disposition home or self-care (01) ==
LOC: EDBD 15:36 → EDUNIT# 15:36 → ER 15:36
DX: S13.8XXA Sprain of joints and ligaments of other parts of neck, initial encounter (principal); S20.211A Contusion of right front wall of thorax, initial encounter; S20.212A Contusion of left front wall of thorax, initial encounter; R51.9 Headache, unspecified; F41.9 Anxiety disorder, unspecified; Z90.49 Acquired absence of other specified parts of digestive tract; Z98.890 Other specified postprocedural states; V49.49XA Driver injured in collision with other motor vehicles in traffic accident, initial encounter; Y93.89 Activity, other specified; Y92.488 Other paved roadways as the place of occurrence of the external cause; Y99.8 Other external cause status
CPT/HCPCS: 36415; 70450; 71260; 72125; 74177; 80053; 80320; 84484; 85025; 85049; 96374; 96375; 99285; J1885; J3010; Q9967

== ENCOUNTER 2021-07-30 07:16 | Emergency (ER) | payer MEDICAID ==
[~2021-07-30] VITALS: Ht 149.9 cm; Wt 81.6 kg
[2021-07-30] MEDS ORDERED: ASPirin 81 mg TAB PO ONE (07:30)
[2021-07-30 09:21] LABS: Basophils # (auto) 0.1 10 ^3/uL (0-0.2); Basophils % (auto) 0.9 % (0.0-2.0); Eosinophils # (auto) 0.3 10 ^3/uL (0-0.8); Eosinophils % (auto) 2.7 % (0.0-7.0); Hematocrit 40.7 % (36.0-46.0); Hemoglobin 13.9 g/dL (12.2-16.2); Lymphocytes # (auto) 2.6 10 ^3/uL (0.4-5.4); Lymphocytes % (auto) 24.9 % (10.0-50.0); Mean Corpuscular Hemoglobin 28.4 pg (28.0-32.0); Mean Corpuscular Hgb Conc. 34.1 g/dL (32.0-36.0); Mean Corpuscular Volume 83.3 fL (80.0-100.0); Monocytes # (auto) 0.5 10 ^3/uL (0-1.3); Monocytes % (auto) 5.2 % (0.0-12.0); Neutrophils # (auto) 6.9 10 ^3/uL (1.6-8.6); Neutrophils % (auto) 66.3 % (37.0-80.0); Nucleated Red Blood Cells % 0.1 %; Red Blood Cells 4.88 10^6/uL (4.0-5.20); Red Cell Distribution Width 13.7 % (11.8-14.3); White Blood Cell 10.4 10^3/uL (4.4-10.8)
[2021-07-30 09:36] LABS: INR 0.97 (0.9-1.15); Partial Thromboplastin Time 28.2 sec (23.6-33.0)
[2021-07-30 09:37] LABS: Potassium 3.8 mmol/L (3.5-5.1)
[2021-07-30 09:44] LABS: Albumin 3.4 g/dL (3.4-5.0); Bilirubin, Total 0.2 mg/dL (0.2-1.0); Calcium 8.6 mg/dL (8.5-10.1); Total Protein 7.4 g/dL (6.4-8.2)
[2021-07-30 10:10] VITALS: BP 132/62
== END 2021-07-30 10:20 | disposition home or self-care (01) ==
LOC: ER 07:16
DX: F41.9 Anxiety disorder, unspecified (principal); R51.9 Headache, unspecified; R11.2 Nausea with vomiting, unspecified; R53.1 Weakness; E03.9 Hypothyroidism, unspecified; Z90.49 Acquired absence of other specified parts of digestive tract
CPT/HCPCS: 36415; 70450; 80053; 85025; 85610; 85730; 93005; 93971

== ENCOUNTER 2023-04-22 20:03 | Emergency (ER) | payer MEDICAID ==
[~2023-04-22] VITALS: Ht 149.9 cm; Wt 81.4 kg
[2023-04-22] MEDS ORDERED: ONDANSETRON ODT 4 MG TAB PO ONE (21:00)
[2023-04-22] MEDS ORDERED: SODIUM CHLORIDE 0.9% 1,000 ML IV ONE (21:00)
[2023-04-22 21:38] LABS: Urine Bacteria MANY /hpf (None Seen); Urine Blood Negative /uL (Negative); Urine Hyaline Cast MOD /lpf (0 - 2); Urine Mucus FEW (None Seen); Urine Specific Gravity 1.018 (1.001-1.035); Urine WBC 1 /hpf (0 - 5)
[2023-04-22 21:42] LABS: Albumin 3.4 g/dL (3.4-5.0); Calcium 8.5 mg/dL (8.5-10.1); Potassium 3.3 mmol/L (3.5-5.1)
[2023-04-22 21:45] LABS: Basophils # (auto) 0 10 ^3/uL (0-0.2); Basophils % (auto) 0.4 % (0.0-2.0); Eosinophils # (auto) 0 10 ^3/uL (0-0.8); Eosinophils % (auto) 0.2 % (0.0-7.0); Hematocrit 40.4 % (36.0-46.0); Hemoglobin 13.5 g/dL (12.2-16.2); Lymphocytes # (auto) 1.3 10 ^3/uL (0.4-5.4); Lymphocytes % (auto) 11.3 % (10.0-50.0); Mean Corpuscular Hemoglobin 27.9 pg (28.0-32.0); Mean Corpuscular Hgb Conc. 33.4 g/dL (32.0-36.0); Mean Corpuscular Volume 83.3 fL (80.0-100.0); Monocytes # (auto) 0.6 10 ^3/uL (0-1.3); Monocytes % (auto) 5.2 % (0.0-12.0); Neutrophils # (auto) 9.6 10 ^3/uL (1.6-8.6); Neutrophils % (auto) 82.9 % (37.0-80.0); Red Blood Cells 4.85 10^6/uL (4.0-5.20); Red Cell Distribution Width 13.9 % (11.8-14.3); White Blood Cell 11.6 10^3/uL (4.4-10.8)
[2023-04-22 21:46] LABS: BUN/Creatinine Ratio 21.4 (10.0-20.0); Bilirubin, Total 0.2 mg/dL (0.2-1.0); Total Protein 7.5 g/dL (6.4-8.2)
[2023-04-22] MEDS ORDERED: ZOFR4T PO ×3 (22:40→23:21)
[2023-04-22] MEDS ORDERED: ACET500T58 PO ×3 (22:40→23:21)
[2023-04-22 23:01] VITALS: BP 133/70; TEMP 98
[2023-04-22 23:02] VITALS: PULSE 113; RESP 18; O2SAT 96
== END 2023-04-22 23:23 | disposition home or self-care (01) ==
LOC: ER 20:03
DX: A05.9 Bacterial foodborne intoxication, unspecified (principal); R11.2 Nausea with vomiting, unspecified; R10.13 Epigastric pain; E66.01 Morbid (severe) obesity due to excess calories; Z90.49 Acquired absence of other specified parts of digestive tract; Z98.51 Tubal ligation status; Z68.36 Body mass index [BMI] 36.0-36.9, adult
CPT/HCPCS: 36415; 80053; 81001; 83690; 85025; 93005; 96360; 99284; J7030; Q0162

== ENCOUNTER 2023-04-24 10:16 | Inpatient (IN) | payer MEDICAID ==
[~2023-04-24] VITALS: Ht 144.8 cm; Wt 81.7 kg
[~2023-04-24 10:16] MED LIST: ACET500T58 PO; ZOFR4T PO
[2023-04-24 11:15] LABS: Basophils # (auto) 0 10 ^3/uL (0-0.2); Basophils % (auto) 0.4 % (0.0-2.0); Eosinophils # (auto) 0 10 ^3/uL (0-0.8); Eosinophils % (auto) 0.1 % (0.0-7.0); Hematocrit 42.1 % (36.0-46.0); Hemoglobin 14.1 g/dL (12.2-16.2); Lymphocytes # (auto) 1.5 10 ^3/uL (0.4-5.4); Lymphocytes % (auto) 16.9 % (10.0-50.0); Mean Corpuscular Hemoglobin 27.8 pg (28.0-32.0); Mean Corpuscular Hgb Conc. 33.5 g/dL (32.0-36.0); Mean Corpuscular Volume 83.1 fL (80.0-100.0); Monocytes # (auto) 0.7 10 ^3/uL (0-1.3); Monocytes % (auto) 7.9 % (0.0-12.0); Neutrophils # (auto) 6.6 10 ^3/uL (1.6-8.6); Neutrophils % (auto) 74.7 % (37.0-80.0); Nucleated Red Blood Cells % 0.1 %; Red Blood Cells 5.06 10^6/uL (4.0-5.20); Red Cell Distribution Width 14.3 % (11.8-14.3); White Blood Cell 8.9 10^3/uL (4.4-10.8)
[2023-04-24] MEDS ORDERED: SODIUM CHLORIDE 0.9% 1,000 ML IVB ONE (11:15)
[2023-04-24 11:35] LABS: Albumin 3.4 g/dL (3.4-5.0); Calcium 8.7 mg/dL (8.5-10.1); Potassium 3.4 mmol/L (3.5-5.1)
[2023-04-24 11:40] LABS: Bilirubin, Total 0.4 mg/dL (0.2-1.0); Total Protein 6.9 g/dL (6.4-8.2)
[2023-04-24 12:18] LABS: Urine Bacteria FEW /hpf (None Seen); Urine Blood Negative /uL (Negative); Urine Mucus FEW (None Seen); Urine Specific Gravity 1.015 (1.001-1.035); Urine WBC 18 /hpf (0 - 5)
[2023-04-24] MEDS ORDERED: MORPHINE SULFATE INJ 2 MG/ml SYRG IV PRN (15:15)
[2023-04-24] MEDS ORDERED: DOCUSATE SOD 100 MG CAP PO PRN (15:15)
[2023-04-24] MEDS ORDERED: NITROGLYCERIN 0.4 MG SL TAB SL PRN (15:15)
[2023-04-24] MEDS ORDERED: IOHEXOL 350 MG/ML 100ML IJ ONE (15:43)
[2023-04-24 16:50] VITALS: PULSE 92; RESP 20; O2SAT 95
[2023-04-24] MEDS: cefTRIAXone 1GM/50ML D5W 50 ML IV SCH (16:50)
[2023-04-24] MEDS: HYDROcodone-ACET 5/325MG TAB PO PRN ×2 (16:58→22:07)
[2023-04-24] MEDS: metroNIDAZOLE 500MG/100ML 100 ML IV SCH (17:54)
[2023-04-24] MEDS: LOPERAMIDE HCL 2 MG CAP/TAB PO PRN ×4 (21:06→23:10)
[2023-04-24] MEDS: SODIUM CHLOR 0.9% PF (SALINE LOCK) 10ML VIAL/SYR IV SCH (22:07)
[2023-04-25] MEDS: SODIUM CHLOR 0.9% PF (SALINE LOCK) 10ML VIAL/SYR IV SCH ×3 (06:00→22:04)
[2023-04-25] MEDS: HYDROcodone-ACET 5/325MG TAB PO PRN ×3 (06:50→20:30)
[2023-04-25] MEDS: LOPERAMIDE HCL 2 MG CAP/TAB PO PRN ×3 (06:52→22:07)
[2023-04-25 07:15] VITALS: PULSE 82; RESP 18; O2SAT 95
[2023-04-25] MEDS: ONDANSETRON HCL 4 MG/2 ML VIAL IV PRN ×2 (09:14→20:07)
[2023-04-25] MEDS: ENOXAPARIN SOD 40 MG/0.4 ML SYRINGE SC SCH (09:36)
[2023-04-25] MEDS: metroNIDAZOLE 500MG/100ML 100 ML IV SCH ×3 (09:36→22:08)
[2023-04-25] MEDS: cefTRIAXone 1GM/50ML D5W 50 ML IV SCH (09:36)
[2023-04-25 11:00] VITALS: BP 124/78; PULSE 103; RESP 24; TEMP 96.4; O2SAT 97
[2023-04-25 13:00] VITALS: BP 110/70; PULSE 108; RESP 23; TEMP 97.1; O2SAT 96
[2023-04-25] MEDS ORDERED: SODIUM CHLORIDE 0.9% 1,000 ML IV SCH ×2 (14:00→14:15)
[2023-04-25] MEDS: SODIUM CHLORIDE 0.9% 1,000 ML IV SCH (15:38)
[2023-04-25 17:00] VITALS: BP 112/72; PULSE 92; RESP 20; TEMP 97.3; O2SAT 97
[2023-04-25 20:00] VITALS: PULSE 102; RESP 18; O2SAT 98
[2023-04-25 22:00] VITALS: BP 117/90; PULSE 94; RESP 18; TEMP 98.4; O2SAT 98
[2023-04-25] MEDS: MELATONIN 5 MG TAB PO SCH (22:05)
[2023-04-26] VITALS (7 sets, daily range): BP systolic 107–130; BP diastolic 71–85; PULSE 77–93; RESP 17–20; TEMP 96.7–98; O2SAT 94–97
[2023-04-26] MEDS: ONDANSETRON HCL 4 MG/2 ML VIAL IV PRN (04:18)
[2023-04-26] MEDS: SODIUM CHLORIDE 0.9% 1,000 ML IV SCH ×2 (04:18→15:37)
[2023-04-26] MEDS: ACETAMINOPHEN 325 MG TAB PO PRN (04:18)
[2023-04-26] MEDS: SODIUM CHLOR 0.9% PF (SALINE LOCK) 10ML VIAL/SYR IV SCH ×3 (06:37→21:02)
[2023-04-26] MEDS: metroNIDAZOLE 500MG/100ML 100 ML IV SCH ×3 (06:37→21:02)
[2023-04-26 07:09] LABS: Basophils # (auto) 0 10 ^3/uL (0-0.2); Basophils % (auto) 0.5 % (0.0-2.0); Eosinophils # (auto) 0.1 10 ^3/uL (0-0.8); Hematocrit 37.3 % (36.0-46.0); Hemoglobin 12.4 g/dL (12.2-16.2); Lymphocytes # (auto) 1.4 10 ^3/uL (0.4-5.4); Lymphocytes % (auto) 23.2 % (10.0-50.0); Mean Corpuscular Hemoglobin 27.7 pg (28.0-32.0); Mean Corpuscular Hgb Conc. 33.2 g/dL (32.0-36.0); Mean Corpuscular Volume 83.4 fL (80.0-100.0); Monocytes # (auto) 0.5 10 ^3/uL (0-1.3); Neutrophils # (auto) 3.9 10 ^3/uL (1.6-8.6); Neutrophils % (auto) 66.3 % (37.0-80.0); Nucleated Red Blood Cells % 0.1 %; Red Blood Cells 4.47 10^6/uL (4.0-5.20); White Blood Cell 5.9 10^3/uL (4.4-10.8)
[2023-04-26 07:41] LABS: BUN/Creatinine Ratio 12.9 (10.0-20.0); Calcium 7.9 mg/dL (8.5-10.1)
[2023-04-26 07:50] LABS: Potassium 2.6 mmol/L (3.5-5.1)
[2023-04-26] MEDS ORDERED: POTASSIUM CHL 20MEQ/100ML 100 ML IV SCH (09:00)
[2023-04-26] MEDS: LOPERAMIDE HCL 2 MG CAP/TAB PO PRN (09:13)
[2023-04-26] MEDS: ENOXAPARIN SOD 40 MG/0.4 ML SYRINGE SC SCH (10:00)
[2023-04-26] MEDS: cefTRIAXone 1GM/50ML D5W 50 ML IV SCH (13:45)
[2023-04-26] MEDS: POTASSIUM CHL 20MEQ/100ML 100 ML IV SCH ×3 (15:36→16:40)
[2023-04-26] MEDS ORDERED: POTASSIUM EFFERVESENT TAB 25 MEQ PO ONE (18:00)
[2023-04-26] MEDS: MELATONIN 5 MG TAB PO SCH (21:02)
[2023-04-27 05:00] VITALS: BP 117/81; PULSE 81; RESP 17; TEMP 98.2; O2SAT 94
[2023-04-27] MEDS: SODIUM CHLOR 0.9% PF (SALINE LOCK) 10ML VIAL/SYR IV SCH ×3 (05:29→21:08)
[2023-04-27] MEDS: SODIUM CHLORIDE 0.9% 1,000 ML IV SCH ×2 (05:29→20:20)
[2023-04-27] MEDS: metroNIDAZOLE 500MG/100ML 100 ML IV SCH ×2 (05:38→13:41)
[2023-04-27 06:41] LABS: Magnesium 2.1 mg/dL (1.6-2.6)
[2023-04-27 06:43] LABS: Phosphorus 2.9 mg/dL (2.5-4.90)
[2023-04-27] MEDS ORDERED: POTASSIUM EFFERVESENT TAB 25 MEQ PO ONE (07:15)
[2023-04-27 07:29] LABS: Basophils # (auto) 0 10 ^3/uL (0-0.2); Basophils % (auto) 0.3 % (0.0-2.0); Eosinophils # (auto) 0.1 10 ^3/uL (0-0.8); Eosinophils % (auto) 1.4 % (0.0-7.0); Hematocrit 36.8 % (36.0-46.0); Hemoglobin 12.2 g/dL (12.2-16.2); Lymphocytes # (auto) 1.9 10 ^3/uL (0.4-5.4); Lymphocytes % (auto) 29.7 % (10.0-50.0); Mean Corpuscular Hemoglobin 27.4 pg (28.0-32.0); Mean Corpuscular Hgb Conc. 33.1 g/dL (32.0-36.0); Mean Corpuscular Volume 82.8 fL (80.0-100.0); Monocytes # (auto) 0.6 10 ^3/uL (0-1.3); Monocytes % (auto) 8.7 % (0.0-12.0); Neutrophils # (auto) 3.9 10 ^3/uL (1.6-8.6); Neutrophils % (auto) 59.9 % (37.0-80.0); Nucleated Red Blood Cells % 0.1 %; Red Blood Cells 4.45 10^6/uL (4.0-5.20); Red Cell Distribution Width 14.2 % (11.8-14.3); White Blood Cell 6.5 10^3/uL (4.4-10.8)
[2023-04-27 07:49] LABS: BUN/Creatinine Ratio 7.9 (10.0-20.0); Calcium 8.1 mg/dL (8.5-10.1)
[2023-04-27 07:57] LABS: Potassium 2.9 mmol/L (3.5-5.1)
[2023-04-27 08:00] VITALS: PULSE 77
[2023-04-27] MEDS: cefTRIAXone 1GM/50ML D5W 50 ML IV SCH (08:21)
[2023-04-27] MEDS: ENOXAPARIN SOD 40 MG/0.4 ML SYRINGE SC SCH (08:23)
[2023-04-27] MEDS ORDERED: POTASSIUM EFFERVESENT TAB 25 MEQ PO SCH (10:00)
[2023-04-27] MEDS: FLORASTOR (S. BOULARDII) 250 MG CAP PO SCH (11:28)
[2023-04-27] MEDS: CHOLESTYRAMINE 4 GM POWDER GT SCH (11:28)
[2023-04-27 12:55] VITALS: BP 129/96; PULSE 81; RESP 16; TEMP 97.4; O2SAT 95
[2023-04-27] MEDS: ACETAMINOPHEN 325 MG TAB PO PRN (13:51)
[2023-04-27 17:00] VITALS: BP 130/79; PULSE 73; RESP 16; TEMP 97.8; O2SAT 96
[2023-04-27 20:00] VITALS: PULSE 74; PULSE 75; RESP 16
[2023-04-27] MEDS: MELATONIN 5 MG TAB PO SCH (21:08)
[2023-04-27 22:00] VITALS: BP 115/77; PULSE 83; RESP 18; TEMP 97.8; O2SAT 94
[2023-04-28 05:00] VITALS: BP 105/71; PULSE 66; RESP 18; TEMP 98; O2SAT 100
[2023-04-28] MEDS: SODIUM CHLOR 0.9% PF (SALINE LOCK) 10ML VIAL/SYR IV SCH (06:01)
[2023-04-28 07:14] LABS: Potassium 3.2 mmol/L (3.5-5.1)
[2023-04-28 07:17] LABS: BUN/Creatinine Ratio 17.1 (10.0-20.0)
[2023-04-28 08:00] VITALS: PULSE 69
[2023-04-28] MEDS ORDERED: POTASSIUM EFFERVESENT TAB 25 MEQ PO ONE (08:15)
[2023-04-28 09:06] VITALS: BP 104/64; PULSE 77; RESP 14; TEMP 97.9; O2SAT 98
[2023-04-28] MEDS: ENOXAPARIN SOD 40 MG/0.4 ML SYRINGE SC SCH (09:58)
[2023-04-28] MEDS: FLORASTOR (S. BOULARDII) 250 MG CAP PO SCH (09:58)
[2023-04-28] MEDS: SODIUM CHLORIDE 0.9% 1,000 ML IV SCH (09:58)
[2023-04-28] MEDS: CHOLESTYRAMINE 4 GM POWDER GT SCH (09:59)
[2023-04-28] MEDS ORDERED: levoFLOXacin 500 MG TAB PO SCH (10:00)
[2023-04-28] MEDS ORDERED: LEVO500T91 PO (10:44)
[2023-04-28] MEDS ORDERED: CHL4PW PO (10:44)
[2023-04-28] MEDS ORDERED: POTA20TA24 PO (10:45)
[2023-04-28 14:12] VITALS: BP 117/82; PULSE 84; RESP 16; TEMP 97.9; O2SAT 99
== END 2023-04-28 14:52 | disposition home or self-care (01) | DRG 249 ==
LOC: ER 10:16 → TELE 15:10 → TELE-CENTR 04-25 11:10
PROVIDERS: ADMIT Internal Medicine; ATTEND Student in an Organized Health Care Education/Training Program
DX: K52.9 Noninfective gastroenteritis and colitis, unspecified (principal); E66.01 Morbid (severe) obesity due to excess calories; E87.6 Hypokalemia; R07.9 Chest pain, unspecified; N39.0 Urinary tract infection, site not specified; Z90.49 Acquired absence of other specified parts of digestive tract; Z83.3 Family history of diabetes mellitus; Z82.49 Family history of ischemic heart disease and other diseases of the circulatory system; Z80.8 Family history of malignant neoplasm of other organs or systems; Z68.39 Body mass index [BMI] 39.0-39.9, adult
CPT/HCPCS: 36415; 71046; 71275; 74176; 80048; 80053; 81001; 81025; 83735; 84100; 84132; 84484; 85025; 85379; 87040; 87045; 87077; 87186; 87427; 87493; 93005; 93306; 93970; 96360; G0378; J0696; J2405; J3480; J3490

== ENCOUNTER 2024-07-01 14:52 | Emergency (ER) | payer MEDICAID ==
[~2024-07-01] VITALS: Ht 149.9 cm; Wt 85.6 kg
[~2024-07-01 14:52] MED LIST changes: +CEPH250C PO; +CHL4PW PO; +POTA20TA24 PO
[2024-07-01 16:04] LABS: Urine Bacteria FEW /hpf (None Seen); Urine Hyaline Cast FEW /lpf (0 - 2); Urine Mucus FEW (None Seen); Urine WBC 26 /hpf (0 - 5)
[2024-07-01 16:34] LABS: Basophils # (auto) 0.1 10 ^3/uL (0-0.2); Basophils % (auto) 0.4 % (0.0-2.0); Eosinophils # (auto) 0 10 ^3/uL (0-0.8); Eosinophils % (auto) 0.2 % (0.0-7.0); Hematocrit 43.2 % (36.0-46.0); Hemoglobin 14.2 g/dL (12.2-16.2); Lymphocytes % (auto) 7.7 % (10.0-50.0); Mean Corpuscular Hemoglobin 27.9 pg (28.0-32.0); Mean Corpuscular Volume 84.5 fL (80.0-100.0); Monocytes # (auto) 0.8 10 ^3/uL (0-1.3); Monocytes % (auto) 6.3 % (0.0-12.0); Neutrophils # (auto) 11.2 10 ^3/uL (1.6-8.6); Neutrophils % (auto) 85.4 % (37.0-80.0); Platelet Count (auto) 400 10^3/uL (140-450); Red Blood Cells 5.11 10^6/uL (4.0-5.20); Red Cell Distribution Width 14.4 % (11.8-14.3); White Blood Cell 13.1 10^3/uL (4.4-10.8)
[2024-07-01 16:37] LABS: Urine Clarity Hazy (Clear); Urine Color Yellow (Yellow)
[2024-07-01 16:38] LABS: Urine Protein, UAD TRACE (Negative)
[2024-07-01 16:39] LABS: Urine Blood Normal /uL (Negative); Urine Urobilinogen Normal (Negative)
[2024-07-01 16:55] LABS: Alanine Aminotransferase 27 U/L (7-40); Alkaline Phosphatase 111 U/L (46-116); Anion Gap 8 (5-15); Aspartate Aminotransferase 20 U/L (13-40); BUN/Creatinine Ratio 19.7 (10.0-20.0); Blood Urea Nitrogen 12 mg/dL (9-23); Calcium 9.6 mg/dL (8.7-10.4); Carbon Dioxide 26 mmol/L (20-31); Chloride 103 mmol/L (98-107); Glucose 123 mg/dL (74-106); Potassium 3.5 mmol/L (3.5-5.1); Sodium 137 mmol/L (136-145)
[2024-07-01 16:56] LABS: Albumin 4.9 g/dL (3.2-4.8); Bilirubin, Total 0.5 mg/dL (0.2-1.0)
[2024-07-01] MEDS: ONDANSETRON ODT 4 MG TAB PO ONE (17:16)
[2024-07-01] MEDS: KETOROLAC TROMETH 30 MG/ML 1ML VIAL IM ONE (17:16)
[2024-07-01] MEDS: cefTRIAXone SOD 1,000 MG VL IM ONE (18:00)
[2024-07-01] MEDS ORDERED: NITR-87 PO (18:05)
[2024-07-01] MEDS ORDERED: ZOFR4T PO (18:05)
[2024-07-01 18:40] VITALS: BP 122/82; PULSE 98; RESP 18; O2SAT 96
== END 2024-07-01 19:06 | disposition home or self-care (01) ==
LOC: ER 14:52
DX: N39.0 Urinary tract infection, site not specified (principal); I10 Essential (primary) hypertension; Z90.49 Acquired absence of other specified parts of digestive tract; Z98.51 Tubal ligation status; Z98.890 Other specified postprocedural states; Z79.899 Other long term (current) drug therapy
CPT/HCPCS: 36415; 71045; 80053; 81001; 83605; 85025; 96372; 99284; J1885; Q0162

== ENCOUNTER 2024-08-27 13:06 | Inpatient (IN) | payer MEDICAID ==
[~2024-08-27] VITALS: Ht 149.9 cm; Wt 87.4 kg
[~2024-08-27 13:06] MED LIST changes: +NITR-87 PO
[2024-08-27 13:50] LABS: Basophils # (auto) 0.1 10 ^3/uL (0-0.2); Eosinophils # (auto) 0.2 10 ^3/uL (0-0.8); Eosinophils % (auto) 1.7 % (0.0-7.0); Lymphocytes # (auto) 2.7 10 ^3/uL (0.4-5.4); Lymphocytes % (auto) 24.8 % (10.0-50.0); Neutrophils % (auto) 68.2 % (37.0-80.0)
[2024-08-27 13:51] LABS: Basophils % (auto) 1.2 % (0.0-2.0); Hematocrit 44.5 % (36.0-46.0); Hemoglobin 14.8 g/dL (12.2-16.2); Mean Corpuscular Hemoglobin 27.8 pg (28.0-32.0); Mean Corpuscular Hgb Conc. 33.3 g/dL (32.0-36.0); Mean Corpuscular Volume 83.7 fL (80.0-100.0); Monocytes # (auto) 0.4 10 ^3/uL (0-1.3); Monocytes % (auto) 4.1 % (0.0-12.0); Neutrophils # (auto) 7.4 10 ^3/uL (1.6-8.6); Platelet Count (auto) 471 10^3/uL (140-450); Red Blood Cells 5.31 10^6/uL (4.0-5.20); White Blood Cell 10.8 10^3/uL (4.4-10.8)
--- NOTE | 2024-08-27 13:52 | ED.PDOC ---
GI ASSESSMENT HPI Comments 39y F who presents to the ED for chief complaint of abdominal pain. Pt states she was at work earlier this AM and states she started having this sever burning epigastric abdominal pain and went to the restroom. Pt states while in restroom, she started to feel nauseous and had vomiting episode. Pt states she had mucus with associated blood in vomit. Pt states the amount of blood in vomit was equivalent to the amount of 2 tablespoons. Pt states since, she has been having epigastric abdominal pain, rating the pain 10/10.constant, burning in nature, with no associated exacerbating or relieving factors. Pt otherwise denies diarrhea, fever, cough, chills, dysuria, hematuria, chest pain or shortness of breath. Pt does state she was sick 4 days prior with nausea and non-bloody emesis and states she went to urgent care, was told she only required symptomatic treatment, then symptoms resolved. Patient also notes she had previous similar symptoms of epigastric pain, nausea and vomiting and was recommended for EGD. She states she canceled that appointment, and never rescheduled. Chief Complaint: Abdominal Pain Time Seen by MD: 13:49 Primary Care Provider: FRANCINE Reviewed Notes: Medications Allergies: Coded Allergies: NO KNOWN ALLERGIES (Unverified , 01/06/19) Home Meds Active Scripts Ondansetron Odt 4MG Tab (ZOFRAN PO) 4 Mg Tb, 4 MG PO TID PRN, #20 TAB ODT TAB-DISSOLVE IN MOUTH, THEN SWALLOW Prov:JOSE MARIA BRUNNERP 07/01/24 Nitrofurantoin Monohydrate Mac (Macrobid) 100 Mg Cap, 100 MG PO BID for 7 Days, #14 CAP Prov:JOSE MARIA BRUNNER 07/01/24 Cephalexin (KEFLEX CAPSULE) 250 Mg Cp, 1 CAP PO QID, #40 CAP Prov:JAMIE CISSE MD 02/03/24 Potassium Bicarbonate-Citric A (Effer-K) 20 Meq Tab, 20 MEQ PO DAILY for 5 Days, #5 TAB Prov:PETR MONTEIRO MD 04/28/23 Cholestyramine (QUESTRAN POWDER) 4 Gm Pw, 4 GM PO DAILY for 10 Days, #40 POW Prov:PETR MONTEIRO MD 04/28/23 Ondansetron Odt 4MG Tab (ZOFRAN PO) 4 Mg Tb, 4 MG PO Q6HP PRN, #20 TAB ODT TAB-DISSOLVE IN MOUTH, THEN SWALLOW Prov:ROBERT RYAN [facility] 04/22/23 Acetaminophen (Acetaminophen) 500 Mg Tab, 500 MG PO Q4HP PRN, #30 TAB Prov:ROBERT RYAN [facility] 04/22/23 Information Source: Patient Mode of Arrival: Ambulatory Brought in by: self Past Medical History PAST MEDICAL HISTORY: HTN Surgical History: BTL, Cholecystectomy, , Hernia Repair [employer] History: No Pertinent [employer] History Family History Family History: Family hx of DM, Family hx of Cancer, Family hx of HTN Social History Smoker: Non-Smoker Alcohol: Denies ETOH Use Drugs: Denies Drug Use Lives In: Home Constitutional: denies: chills, diaphoresis, fatigue, fever, malaise, sweats, weakness, others EENTM: denies: blurred vision, double vision, ear bleeding, ear discharge, ear drainage, ear pain, ear ringing, eye pain, eye redness, hearing loss, mouth pain, mouth swelling, nasal discharge, nose bleeding, nose congestion, nose pain, photophobia, tearing, throat pain, throat swelling, voice changes, others Respiratory: denies: cough, hemoptysis, orthopnea, SOB at rest, shortness of breath, SOB with excertion, stridor, wheezing, others Cardiovascular: denies: chest pain, dizzy spells, diaphoresis, Dyspnea on exertion, edema, irregular heart beat, left arm pain, lightheadedness, palpitations, PND, syncope, others Gastrointestinal: reports: abdominal pain, nausea, vomiting; denies: abdomen distended, blood streaked bowels, constipated, diarrhea, dysphagia, difficulty swallowing, hematemesis, melena, poor appetite, poor fluid intake, rectal bleeding, rectal pain, others Genitourinary: denies: abnormal vagina bleeding, burning, dyspareunia, dysuria, flank pain, frequency, hematuria, incontinence, pain, , vagina discharge, urgency, others Neurological: denies: dizziness, fainting, headache, left sided numbness, left sided weakness, numbness, paresthesia, pre-existing deficit, right sided numbness, right sided weakness, seizure, speech problems, tingling, tremors, weakness, others Musculoskeletal: denies: back pain, gout, joint pain, joint swelling, muscle pain, muscle stiffness, neck pain, others Integumetry: denies: bruises, change in color, change in hair/nails, dryness, laceration, lesions, lumps, rash, wounds, others Allergic/Immunocompromised: denies: Difficulty Healing, Frequent Infections, Hives, Itching, others Hematologic/Lymphatic: denies: anemia, blood clots, easy bleeding, easy bruising, swollen glands, others Endocrine: denies: excessive hunger, excessive sweating, excessive thirst, excessive urination, flushing, intolerance to cold, intolerance to heat, unexplained weight gain, unexplained weight loss, others Psychiatric: denies: anxiety, bipolar disorder, depression, hopeless, panic disorder, schizophrenia, sleepless, suicidal, others All Other Systems: Reviewed and Negative Physical Exam General Appearance: Mild Distress HEENT: Other (Pupils symmetric, no facial asymmetry, moist mucous membranes) Neck: Full Range of Motion, Normal Inspection, Supple Respiratory: Lungs Clear, No Accessory Muscle Use, No Respiratory Distress, Normal Breath Sounds Cardiovascular: No Edema, No JVD, Regular Rate/Rhythm Breast Exam: Deferred Gastrointestinal: Epigastric, Tenderness Genitalia: Deferred Pelvic: Deferred Rectal: Deferred Extremities: Normal inspection, Normal range of motion, Non-tender, No pedal edema Neurologic: Alert, No Motor Deficits, Normal Affect, Normal Mood, No Sensory Deficits Cerebellar Function: NOT DONE Reflexes: NOT DONE Skin: Dry, Normal Color, Warm Lymphatic: NOT DONE Was a procedure done? Was a procedure done?: No GI differential Dx Differential Diagnosis: Esophagitis, Gastritis/PUD, Gastroenteritis, Hernia, Pancreatitis, UTI, Food Poisoning, Bacterial, Parasitic, Viral, Stress Ulcer X-Ray, Labs, Meds, VS Vital Signs Date Time Temp Pulse Resp B/P (MAP) Pulse Ox O2 Delivery O2 Flow Rate FiO2 08/27/24 13:09 98.3 100 22 155/107 (123) 96 Lab Test 08/27/24 13:36 08/27/24 13:12 Range/Units White Blood Count 10.8 4.4-10.8 10^3/uL Red Blood Count 5.31 H 4.0-5.20 10^6/uL Hemoglobin 14.8 12.2-16.2 g/dL Hematocrit 44.5 36.0-46.0 % Mean Corpuscular Volume 83.7 80.0-100.0 fL Mean Corpuscular Hemoglobin 27.8 L 28.0-32.0 pg Mean Corpuscular Hemoglobin Concent 33.3 32.0-36.0 g/dL Red Cell Distribution Width 14.0 11.8-14.3 % Platelet Count 471 H 140-450 10^3/uL Mean Platelet Volume 6.8 L 6.9-10.8 fL Neutrophils (%) (Auto) 68.2 37.0-80.0 % Lymphocytes (%) (Auto) 24.8 10.0-50.0 % Monocytes (%) (Auto) 4.1 0.0-12.0 % Eosinophils (%) (Auto) 1.7 0.0-7.0 % Basophils (%) (Auto) 1.2 0.0-2.0 % Neutrophils # (Auto) 7.4 1.6-8.6 10 ^3/uL Lymphocytes # (Auto) 2.7 0.4-5.4 10 ^3/uL Monocytes # (Auto) 0.4 0-1.3 10 ^3/uL Eosinophils # (Auto) 0.2 0-0.8 10 ^3/uL Basophils # (Auto) 0.1 0-0.2 10 ^3/uL Nucleated Red Blood Cells 0.0 % Prothrombin Time 10.3 9.3-11.8 sec Prothrombin Time INR 0.97 0.9-1.15 Activated Partial Thromboplast Time 32.7 24.5-34.5 SEC Sodium Level 142 136-145 mmol/L Potassium Level 3.7 3.5-5.1 mmol/L Chloride Level 105 98-107 mmol/L Carbon Dioxide Level 28 20-31 mmol/L Anion Gap 9 5-15 Blood Urea Nitrogen 15 9-23 mg/dL Creatinine 0.59 0.550-1.02 mg/dL Glomerular Filtration Rate Calc 118 >90 mL/min BUN/Creatinine Ratio 25.4 H 10.0-20.0 Serum Glucose 114 H 74-106 mg/dL Calcium Level 10.1 8.7-10.4 mg/dL Total Bilirubin 0.2 0.2-1.0 mg/dL Direct Bilirubin < 0.1 <0.3 mg/dL Aspartate Amino Transferase (AST) 22 13-40 U/L Alanine Aminotransferase (ALT) 46 H 7-40 U/L Alkaline Phosphatase 101 46-116 U/L Total Protein 7.7 5.7-8.2 g/dL Albumin 4.7 3.2-4.8 g/dL Lipase 42 12-53 U/L Beta HCG, Quantitative 1.7 1.5-4.2 mIU/mL Urine Color Light-yellow Yellow Urine Clarity Turbid H Clear Urine pH 6.0 5.0-9.0 Urine Specific [place] 1.018 1.001-1.035 Urine Protein Negative Negative Urine Ketones Negative Negative Urine Blood Negative Negative /uL Urine Nitrite 2+ H Negative Urine Bilirubin Negative Negative Urine Urobilinogen Normal Negative mg/dL Urine Leukocyte Esterase Negative Negative /uL Urine RBC 1 0 - 4 /hpf Urine WBC 4 0 - 5 /hpf Urine Squamous Epithelial Cells Few <5 /hpf Urine Bacteria None seen None Seen /hpf Urine Glucose Normal Normal mg/dL [place] [id number] Ph: [phone] DIAGNOSTIC IMAGING Diagnostic Imaging Report : [id number] Signed PATIENT: AUDRA LEE ACCT: [id number] UNIT: [id number] : 1985 LOC: ER ROOM / BED: / AGE / SEX: 39 / F ADM STATUS: REG ER SERVICE 1401 ORDERING PHYSICIAN: SANDRA YOUNG MD PROCEDURE(s): ABPL - CT AB PEL WO CON-NO ORAL OR IV REASON: hematemesis, upper abd pain ORDER NUMBER(s): [id number], ACCESSION NUMBER(s): [id number] Exam: CT CT AB PEL WO CON-NO ORAL OR IV History: hematemesis, upper abd pain Comparison Study: CT CT AB PEL WO CON-NO ORAL OR IV on DOS: 02/02/24, CT CT AB PEL WO CON-NO ORAL OR IV on DOS: 04/24/23, CT CHEST/AB/PL W CON- IV ONLY on DOS: 03/20/21 Technique: Multidetector spiral CT of the abdomen and pelvis was performed from lung bases to pubic symphysis. Imaging was performed without IV contrast. Axial, coronal and sagittal multiplanar reformats were obtained from the axial data set by the technologist. Radiation dose : Abdomen/Pelvis: CTDIvol 20 mGy, DLP 1185.11 mGy*cm. Findings: Evaluation of solid organs is limited due to lack of intravenous contrast use. Lung Bases: No acute or significant lung base finding. Normal heart size. No pleural or pericardial effusion. Liver: Diffuse hepatic steatosis. Gallbladder and biliary Tree: Cholecystectomy. Spleen: Unremarkable Pancreas: The pancreas is grossly normal in appearance. Adrenal Glands: Unremarkable Kidneys: Kidneys are grossly normal without calculi or hydronephrosis. Bladder: Grossly unremarkable for degree of distention. Bowel: The stomach is grossly normal in appearance. Small bowel and colon are normal in caliber and distribution. Normal appendix is visualized in the right lower quadrant without findings of appendicitis. Ascites: Absent Lymphadenopathy: No mesenteric, retroperitoneal or periportal lymphadenopathy. Abdominal wall and Mesentery: Unremarkable. Vasculature: The visualized abdominal aorta is normal in size and caliber. Evaluation of abdominal and pelvic vessels is limited due to lack of intravenous contrast. Pelvic Organs: Unremarkable Musculoskeletal: No aggressive focal bony lesions, acute fractures or dislocation. IMPRESSION: 1. No acute abdominal or pelvic findings. Diffuse hepatic steatosis. Radiation optimization: All CT scans at this facility use at least one of these dose optimization techniques: Automated exposure control mA and/or kV adjustment per patient size (includes targeted exams where dose is matched to clinical indication) or iterative reconstruction. HS:Y ATED BY: JOHN MA MD DICTATED DATE/TIME: 08/27/24 144 SIGNED BY: JOHN MA MD SIGNED DATE/TIME: 08/27/24 144 CC: X-Ray, Labs, Meds, VS Comment 39-year-old female with hypertension complaining of epigastric pain, nausea, vomiting and hematemesis. Patient states it was recommended that she undergo EGD, however she canceled the appointment and never rescheduled. Vitals remarkable for respiratory rate 22, BP 155/107 Exam remarkable for epigastric tenderness to palpation Rhythm strip independently interpreted by me: Sinus rhythm, rate 100, no ectopy. CT abdomen and pelvis: Diffuse hepatic steatosis, otherwise no acute findings CBC remarkable for platelets 471, basic metabolic panel unremarkable for any abnormality of acute significance, hCG negative, lipase normal, UA positive for nitrite, WBCs, no bacteria, few squamous epithelial cells Patient treated with the following in the ED: Morphine 4 mg IV, Zofran 4 mg IV, Protonix 40 mg IV On re-evaluation, patient had partial improvement of her symptoms, however states she was still having some burning discomfort and nausea. She was not actively vomiting. Plan is to admit the patient for GI evaluation. Time of 1ST Reevaluation: 14:20 Reevaluation 1ST: Unchanged Time of 2ND Reevaluation: 15:43 Patient Education/Counseling: Diagnosis, Treatment Family Education/Counseling: No Family Present Departure 1 Departure Time of Disposition: 15:43 Impression: Primary Impression: Hematemesis Qualified Codes: K92.0 - Hematemesis Additional Impression: Epigastric abdominal pain Disposition: ADMITTED INPATIENT Admit to: Med Surg Condition: Fair Critical Care Note Critical Care Time?: No Stability Stability form required: No Heart Score Heart Score: Heart Score Response (Comments) Value History N/A 0 EKG N/A 0 Age N/A 0 Risk Factors N/A 0 Troponin N/A 0 Total 0 I personally scribed for SANDRA YOUNG MD ([email or web address]) on 08/27/24 at 13:52. Electronically submitted by Lorne Welch ([email or web address]). I personally scribed for SANDRA YOUNG MD ([email or web address]) on 08/27/24 at 15:01. Electronically submitted by Lorne Welch ([email or web address]). SANDRA YOUNG MD Aug 27, 2024 13:52
[2024-08-27 13:59] LABS: Chloride 105 mmol/L (98-107); Potassium 3.7 mmol/L (3.5-5.1); Sodium 142 mmol/L (136-145)
[2024-08-27 14:00] LABS: Anion Gap 9 (5-15); Calcium 10.1 mg/dL (8.7-10.4); Carbon Dioxide 28 mmol/L (20-31)
[2024-08-27 14:05] LABS: BUN/Creatinine Ratio 25.4 (10.0-20.0); Blood Urea Nitrogen 15 mg/dL (9-23); Glucose 114 mg/dL (74-106); INR 0.97 (0.9-1.15); Partial Thromboplastin Time 32.7 SEC (24.5-34.5); Prothrombin Time 10.3 sec (9.3-11.8)
[2024-08-27 14:07] LABS: Alanine Aminotransferase 46 U/L (7-40); Albumin 4.7 g/dL (3.2-4.8); Alkaline Phosphatase 101 U/L (46-116); Aspartate Aminotransferase 22 U/L (13-40); Bilirubin, Direct < 0.1 mg/dL (<0.3); Bilirubin, Total 0.2 mg/dL (0.2-1.0); Total Protein 7.7 g/dL (5.7-8.2)
[2024-08-27 14:19] LABS: Lipase 42 U/L (12-53)
[2024-08-27 14:37] LABS: Urine Bacteria None Seen /hpf (None Seen)
[2024-08-27 14:45] LABS: Urine Blood Negative /uL (Negative); Urine Clarity Turbid (Clear); Urine Color Light-Yellow (Yellow); Urine Protein, UAD Negative (Negative); Urine Specific Gravity 1.018 (1.001-1.035); Urine Urobilinogen Normal (Negative); Urine WBC 4 /hpf (0 - 5)
--- NOTE | 2024-08-27 14:51 | DVH ---
Exam: CT CT AB PEL WO CON-NO ORAL OR IV History: hematemesis, upper abd pain Comparison Study: CT CT AB PEL WO CON-NO ORAL OR IV on DOS: 02/02/24, CT CT AB PEL WO CON-NO ORAL OR I V on DOS: 04/24/23, CT CHEST/AB/PL W CON- IV ONLY on DOS: 03/20/21 Technique: Multidetector spiral CT of the abdomen and pelvis was performed from lung bases to pubic symphysis. Imaging was performed without IV contrast. Axial, coronal and sagittal multiplanar reform ats were obtained from the axial data set by the technologist. Radiation dose : Abdomen/Pelvis: CTDIvol 20 mGy, DLP 1185.11 mGy*cm. Findings: Evaluation of solid organs is limited due to lack of intravenous contrast use. Lung Bases: No acute or significant lung base finding. Normal heart size. No pleural or pericardial effusion. Liver: Diffuse hepatic steatosis. Gallbladder and biliary Tree: Cholecystectomy. Spleen: Unremarkable Pancreas: The pancreas is grossly normal in appearance. Adrenal Glands: Unremarkable Kidneys: Kidneys are grossly normal without calculi or hydronephrosis. Bladder: Grossly unremarkable for degree of distention. Bowel: The stomach is grossly normal in appearance. Small bowel and colon are normal in caliber and d istribution. Normal appendix is visualized in the right lower quadrant without findings of appendici tis. Ascites: Absent Lymphadenopathy: No mesenteric, retroperitoneal or periportal lymphadenopathy. Abdominal wall and Mesentery: Unremarkable. Vasculature: The visualized abdominal aorta is normal in size and caliber. Evaluation of abdominal a nd pelvic vessels is limited due to lack of intravenous contrast. Pelvic Organs: Unremarkable Musculoskeletal: No aggressive focal bony lesions, acute fractures or dislocation. IMPRESSION: 1. No acute abdominal or pelvic findings. Diffuse hepatic steatosis. Radiation optimization: All CT scans at this facility use at least one of these dose optimization seth hniques: Automated exposure control mA and/or kV adjustment per patient size (includes targeted exams where dose is matched to clinical indication) or iterative reconstruction. HS:Y
--- NOTE | 2024-08-27 16:04 | DVHHP2 ---
History of Present Illness Reason for Visit: abdominal pain History of Present Illness Jenny Perez is a 39YO F with pmHx of HTN, BTL, Cholecystectomy, , and Hernia repair who presents to the ED for abdominal pain, N/V, and hematemesis. Patient reports she was informed to have an EGD and the appt was made on her son's graduation date, she never rescheduled. Patient reports that she was at work at [employer] in the box and suddenly developed sharp abdominal pain went to the restroom was nauseous, diaphoretic, and vomited blood, 2 tbsp. She immediately came into the ED. Patient denies chest pain, sob, fever, back pain, diarrhea, and ingestion of spoiled food. Cardiovascular: HTN Past Surgical History: Cholecystectomy, , Hernia Repair, Tubal Ligation Family History: Cancer, DM, Thyroid disfunction Smoke: No ALCOHOL: none Drugs: None Lives: with Family Domestic Violence: Neg Review of Systems Constitutional: Yes: Chills; No: Fever, Sweats, Weakness, Malaise, Other Eyes: No: Pain, Vision change, Conjunctivae inflammation, Eyelid inflammation, Other, Redness ENT: No: Ear pain, Ear discharge, Nose pain, Nose discharge, Nose congestion, Mouth pain, Mouth swelling, Throat pain, Throat swelling, Other Respiratory: No: Cough, Dry, Shortness of breath, SOB with excertion, Wheezing, Hemoptysis, Pleuritic Pain, Sputum, Wheezing, Other Cardiovascular: No: Chest Pain, Palpitations, Orthopnea, Paroxysmal Noc. Dyspnea, Edema, Lt Headedness, Other Gastrointestinal: Nausea, Vomiting, Abdominal Pain, Other (hematemesis) Genitourinary: No Dysuria, No Frequency, No Incontinence, No Hematuria, No Retention, No Other Musculoskeletal: No: other, neck pain, shoulder pain, arm pain, back pain, hand pain, leg pain, foot pain Skin: No: Rash, Lesions, Jaundice, Bruising, Other Neurological: No: Weakness, Numbness, Incoordination, Change in speech, Confusion, Seizures, Other Allergies: Coded Allergies: NO KNOWN ALLERGIES (Unverified , 01/06/19) Exam Vital Signs Vital Signs Date Time Temp Pulse Resp B/P (MAP) Pulse Ox O2 Delivery O2 Flow Rate FiO2 08/27/24 13:09 98.3 100 22 155/107 (123) 96 General Appearance: Alert, Oriented X3, Cooperative, mild distress HEENT: Atraumatic, PERRLA, EOMI, Mucous membr. moist/pink Respiratory: Normal air movement Cardiovascular: Regular rate, Normal S1, Normal S2, No murmurs Abdominal: Soft Extremities: No clubbing, No cyanosis, No edema, Normal pulses, No tenderness/ swelling Skin: No rashes, No breakdown, No significant lesion Neuro: Normal gait, Normal speech, Strength at 5/5 X4 ext, Normal tone, Sensation intact Psych/Mental Status: Mental status NL, Mood NL Labs/Xrays Labs Test 08/27/24 13:36 08/27/24 13:12 Range/Units White Blood Count 10.8 4.4-10.8 10^3/uL Red Blood Count 5.31 H 4.0-5.20 10^6/uL Hemoglobin 14.8 12.2-16.2 g/dL Hematocrit 44.5 36.0-46.0 % Mean Corpuscular Volume 83.7 80.0-100.0 fL Mean Corpuscular Hemoglobin 27.8 L 28.0-32.0 pg Mean Corpuscular Hemoglobin Concent 33.3 32.0-36.0 g/dL Red Cell Distribution Width 14.0 11.8-14.3 % Platelet Count 471 H 140-450 10^3/uL Mean Platelet Volume 6.8 L 6.9-10.8 fL Neutrophils (%) (Auto) 68.2 37.0-80.0 % Lymphocytes (%) (Auto) 24.8 10.0-50.0 % Monocytes (%) (Auto) 4.1 0.0-12.0 % Eosinophils (%) (Auto) 1.7 0.0-7.0 % Basophils (%) (Auto) 1.2 0.0-2.0 % Neutrophils # (Auto) 7.4 1.6-8.6 10 ^3/uL Lymphocytes # (Auto) 2.7 0.4-5.4 10 ^3/uL Monocytes # (Auto) 0.4 0-1.3 10 ^3/uL Eosinophils # (Auto) 0.2 0-0.8 10 ^3/uL Basophils # (Auto) 0.1 0-0.2 10 ^3/uL Nucleated Red Blood Cells 0.0 % Prothrombin Time 10.3 9.3-11.8 sec Prothrombin Time INR 0.97 0.9-1.15 Activated Partial Thromboplast Time 32.7 24.5-34.5 SEC Sodium Level 142 136-145 mmol/L Potassium Level 3.7 3.5-5.1 mmol/L Chloride Level 105 98-107 mmol/L Carbon Dioxide Level 28 20-31 mmol/L Anion Gap 9 5-15 Blood Urea Nitrogen 15 9-23 mg/dL Creatinine 0.59 0.550-1.02 mg/dL Glomerular Filtration Rate Calc 118 >90 mL/min BUN/Creatinine Ratio 25.4 H 10.0-20.0 Serum Glucose 114 H 74-106 mg/dL Calcium Level 10.1 8.7-10.4 mg/dL Total Bilirubin 0.2 0.2-1.0 mg/dL Direct Bilirubin < 0.1 <0.3 mg/dL Aspartate Amino Transferase (AST) 22 13-40 U/L Alanine Aminotransferase (ALT) 46 H 7-40 U/L Alkaline Phosphatase 101 46-116 U/L Total Protein 7.7 5.7-8.2 g/dL Albumin 4.7 3.2-4.8 g/dL Lipase 42 12-53 U/L Beta HCG, Quantitative 1.7 1.5-4.2 mIU/mL Urine Color Light-yellow Yellow Urine Clarity Turbid H Clear Urine pH 6.0 5.0-9.0 Urine Specific [place] 1.018 1.001-1.035 Urine Protein Negative Negative Urine Ketones Negative Negative Urine Blood Negative Negative /uL Urine Nitrite 2+ H Negative Urine Bilirubin Negative Negative Urine Urobilinogen Normal Negative mg/dL Urine Leukocyte Esterase Negative Negative /uL Urine RBC 1 0 - 4 /hpf Urine WBC 4 0 - 5 /hpf Urine Squamous Epithelial Cells Few <5 /hpf Urine Bacteria None seen None Seen /hpf Urine Glucose Normal Normal mg/dL Exam: CT CT AB PEL WO CON-NO ORAL OR IV History: hematemesis, upper abd pain Abdomen/Pelvis: CTDIvol 20 mGy, DLP 1185.11 mGy*cm. Findings: Evaluation of solid organs is limited due to lack of intravenous contrast use. Lung Bases: No acute or significant lung base finding. Normal heart size. No pleural or pericardial effusion. Liver: Diffuse hepatic steatosis. Gallbladder and biliary Tree: Cholecystectomy. Spleen: Unremarkable Pancreas: The pancreas is grossly normal in appearance. Adrenal Glands: Unremarkable Kidneys: Kidneys are grossly normal without calculi or hydronephrosis. Bladder: Grossly unremarkable for degree of distention. Bowel: The stomach is grossly normal in appearance. Small bowel and colon are normal in caliber and distribution. Normal appendix is visualized in the right lower quadrant without findings of appendicitis. Ascites: Absent Lymphadenopathy: No mesenteric, retroperitoneal or periportal lymphadenopathy. Abdominal wall and Mesentery: Unremarkable. Vasculature: The visualized abdominal aorta is normal in size and caliber. Evaluation of abdominal and pelvic vessels is limited due to lack of intravenous contrast. Pelvic Organs: Unremarkable Musculoskeletal: No aggressive focal bony lesions, acute fractures or dislocatio n. IMPRESSION: 1. No acute abdominal or pelvic findings. Diffuse hepatic steatosis. Assessment/Plan Assessment/Plan Assessment: Abdominal pain suspected upper GIB UTI Hepatic steatosis Hx of HTN BTL Cholecystectomy Hernia repair Plan: Admit to med surg GI cx for EGD eval IV fluids Pain management IV antibiotics Antiemetics Protonix CT A/P Antihypertensives Monitor labs UA noted Home medications reconciled Plan discussed with: Patient Date of Service: Aug 27, 2024 Billing Provider: JESSE GALLEGOS Common Visit Codes: 58853-CEWDRWM INP/OBS CARE (MOD) JESSE GALLEGOS Aug 27, 2024 16:04
[2024-08-27] MEDS: ONDANSETRON HCL 4 MG/2 ML VIAL IV ONE (16:12)
[2024-08-27] MEDS: PANTOPRAZOLE 40 MG/10 ML VIAL INJ IV ONE (16:12)
[2024-08-27] MEDS: MORPHINE SULFATE 4 MG/ML SYR/VIAL IV ONE (16:16)
[2024-08-27] MEDS ORDERED: ACETAMINOPHEN 325 MG TAB PO PRN (16:45)
[2024-08-27] MEDS: metroNIDAZOLE 500MG/100ML 100 ML IV ONE (16:45)
[2024-08-27] MEDS ORDERED: HYDROcodone-ACET 5/325MG TAB PO PRN (16:45)
[2024-08-27] MEDS: SODIUM CHLORIDE 0.9% 1,000 ML IV SCH (16:45)
[2024-08-27] MEDS ORDERED: DOCUSATE SOD 100 MG CAP PO PRN (16:45)
[2024-08-27] MEDS: cefTRIAXone 1GM/50ML D5W 50 ML IV ONE (19:07)
[2024-08-27] MEDS: MORPHINE SULFATE INJ 2 MG/ml SYRG IV PRN (19:18)
[2024-08-27 20:08] VITALS: BP 122/82; PULSE 84; RESP 18; TEMP 98; O2SAT 96
[2024-08-27] MEDS: metroNIDAZOLE 500MG/100ML 100 ML IV SCH (22:20)
[2024-08-28 05:20] LABS: Basophils # (auto) 0 10 ^3/uL (0-0.2); Basophils % (auto) 0.6 % (0.0-2.0); Eosinophils # (auto) 0.2 10 ^3/uL (0-0.8); Eosinophils % (auto) 2.9 % (0.0-7.0); Hemoglobin 13.1 g/dL (12.2-16.2); Lymphocytes # (auto) 2.4 10 ^3/uL (0.4-5.4); Lymphocytes % (auto) 30.8 % (10.0-50.0); Mean Corpuscular Hemoglobin 28.2 pg (28.0-32.0); Mean Corpuscular Hgb Conc. 33.6 g/dL (32.0-36.0); Mean Corpuscular Volume 83.9 fL (80.0-100.0); Monocytes # (auto) 0.5 10 ^3/uL (0-1.3); Monocytes % (auto) 6.5 % (0.0-12.0); Neutrophils # (auto) 4.6 10 ^3/uL (1.6-8.6); Neutrophils % (auto) 59.2 % (37.0-80.0); Platelet Count (auto) 378 10^3/uL (140-450); Red Blood Cells 4.65 10^6/uL (4.0-5.20); Red Cell Distribution Width 14.1 % (11.8-14.3); White Blood Cell 7.8 10^3/uL (4.4-10.8)
[2024-08-28 05:34] LABS: Alanine Aminotransferase 77 U/L (7-40); Albumin 3.8 g/dL (3.2-4.8); Alkaline Phosphatase 129 U/L (46-116); Anion Gap 7 (5-15); Aspartate Aminotransferase 63 U/L (13-40); BUN/Creatinine Ratio 20.4 (10.0-20.0); Blood Urea Nitrogen 11 mg/dL (9-23); Carbon Dioxide 28 mmol/L (20-31); Chloride 107 mmol/L (98-107); Glucose 105 mg/dL (74-106); Potassium 3.8 mmol/L (3.5-5.1); Sodium 142 mmol/L (136-145)
[2024-08-28 05:35] LABS: Bilirubin, Total 0.4 mg/dL (0.2-1.0); Total Protein 6.2 g/dL (5.7-8.2)
[2024-08-28 06:16] VITALS: BP 104/64; PULSE 66; RESP 18; TEMP 97.6; O2SAT 94
[2024-08-28 07:51] VITALS: PULSE 72; RESP 16; O2SAT 97
[2024-08-28 08:44] VITALS: BP 104/71; PULSE 68; RESP 16; TEMP 97.8; O2SAT 98
[2024-08-28] MEDS: PANTOPRAZOLE 40 MG/10 ML VIAL INJ IV SCH (08:53)
[2024-08-28] MEDS: cefTRIAXone 1GM/50ML D5W 50 ML IV SCH (08:53)
[2024-08-28] MEDS: CHOLESTYRAMINE 4 GM POWDER PO SCH (10:00)
[2024-08-28] MEDS: ONDANSETRON HCL 4 MG/2 ML VIAL IV PRN (11:08)
[2024-08-28 13:19] VITALS: BP 117/68; PULSE 63; RESP 20; TEMP 97.9; O2SAT 94
[2024-08-28 13:38] VITALS: BP 110/87; PULSE 73; RESP 16; TEMP 98.3; O2SAT 96
--- NOTE | 2024-08-28 16:45 | DVHPN2 ---
Subjective Patient denies any more nausea/vomiting. Continues to report having intermittent abdominal pain Reviewed: Care Plan, H&P, Labs, Medications Changes from previous H/P or p: No Changes General: Per HPI, Chills Eyes: No Pain, No Vision change, No Conjunctivae inflammation, No Eyelid inflammation, No Other, No Redness ENT: No Ear pain, No Ear discharge, No Nose pain, No Nose discharge, No Nose congestion, No Mouth pain, No Mouth swelling, No Throat pain, No Throat swelling, No Other Cardiovascular: No Chest Pain, No Palpitations, No Orthopnea, No Paroxysmal Noc. Dyspnea, No Edema, No Lt Headedness, No Other Respiratory: No Cough, No Dry, No Shortness of breath, No SOB with excertion, No Wheezing, No Hemoptysis, No Pleuritic Pain, No Sputum, No Other Gastrointestinal: Nausea, Vomiting, Abdominal Pain, Other (hematemesis) Genitourinary: No Dysuria, No Frequency, No Incontinence, No Hematuria, No Retention, No Other Musculoskeletal: No other, No neck pain, No shoulder pain, No arm pain, No back pain, No hand pain, No leg pain, No foot pain Skin: No Rash, No Lesions, No Jaundice, No Bruising, No Other Objective Vitals Vital Signs Date Time Temp Pulse Resp B/P (MAP) Pulse Ox O2 Delivery O2 Flow Rate FiO2 08/28/24 13:38 98.3 73 16 110/87 (95) 96 98.3 08/28/24 07:51 Room Air* 0 21 Intake/Output Intake and Output 08/28/24 07:00 Intake Total 200 ml Balance 200 ml Intake IV Total 200 ml General Appearance: Alert, Oriented X3, Cooperative, No acute distress HEENT: Atraumatic, PERRLA Lungs: Clear to auscultation, Normal air movement Cardiovascular: Normal S1, Normal S2 Abdomen: Normal bowel sounds, Soft, No tenderness Musculoskeletal: Normal sensory function, Normal motor function Neuro: Normal gait, Normal speech Psych/Mental Status: Mental status NL, Mood NL Medications Current Medications Medications Dose Ordered Sig/Liza Route Start Time Stop Time Status Last Admin Dose Admin Cholestyramine Resin 4 gm DAILY PO 08/28/24 10:00 Ceftriaxone Sodium 50 ml @ 100 mls/hr DAILY IV 08/28/24 10:00 08/28/24 08:53 100 MLS/HR Metronidazole 100 ml @ 100 mls/hr Q8HR IV 08/27/24 22:00 08/28/24 05:17 100 MLS/HR Pantoprazole Sodium 40 mg DAILY IV 08/28/24 10:00 08/28/24 08:53 40 MG Sodium Chloride 1,000 ml @ 100 mls/hr Q10H IV 08/27/24 16:45 08/28/24 12:45 100 MLS/HR Acetaminophen/ Hydrocodone Bitart 1 tab Q4HP PRN PO 08/27/24 16:45 Ondansetron HCl 4 mg Q4HP PRN IV 08/27/24 16:45 08/28/24 11:08 4 MG Docusate Sodium 100 mg BIDPRN PRN PO 08/27/24 16:45 Acetaminophen 650 mg Q6HP PRN PO 08/27/24 16:45 Morphine Sulfate 2 mg Q4HPRN PRN IV 08/27/24 16:45 08/28/24 12:23 2 MG Laboratory Results Laboratory Tests 08/28/24 03:59 Chemistry Test 08/28/24 03:59 Albumin 3.8 g/dL (3.2-4.8) Calcium Level 9.0 mg/dL (8.7-10.4) Total Protein 6.2 g/dL (5.7-8.2) LFT Test 08/28/24 03:59 Alanine Aminotransferase (ALT) 77 U/L (7-40) H Alkaline Phosphatase 129 U/L (46-116) H Aspartate Amino Transferase (AST) 63 U/L (13-40) H Total Bilirubin 0.4 mg/dL (0.2-1.0) Urinalysis Test 08/27/24 13:12 Urine Color Light-yellow (Yellow) Urine Clarity Turbid (Clear) H Urine pH 6.0 (5.0-9.0) Urine Specific [place] 1.018 (1.001-1.035) Urine Protein Negative (Negative) Urine Ketones Negative (Negative) Urine Blood Negative /uL (Negative) Urine Nitrite 2+ (Negative) H Urine Bilirubin Negative (Negative) Urine Urobilinogen Normal mg/dL (Negative) Urine Leukocyte Esterase Negative /uL (Negative) Urine RBC 1 /hpf (0 - 4) Urine WBC 4 /hpf (0 - 5) Urine Squamous Epithelial Cells Few /hpf (<5) Urine Bacteria None seen /hpf (None Seen) Urine Glucose Normal mg/dL (Normal) Labs and/or images reviewed: Labs reviewed by me, Image(s) reviewed by me Assessment/Plan Assessment/Plan Impression: -rule out upper GI bleed given reported hematemesis -questionable gastroenteritis -morbid obesity Plan: -GI consultation: Pending -continue PPI -continue antibiotic therapy with Rocephin and Flagyl -start clear liquid diet -discharge planning once evaluated by Gastroenterology Total time spent with patient discussing and formulating plan of care: 35 minutes. This medical document was created using an electronic medical record system with [employer] dictation system. Although this document has been carefully reviewed, there may still be some phonetic and typographical errors. These areas are purely typographical due to imperfections of the software programs, and do not reflect any compromise in the patient's medical care. Plan discussed with: Patient, Other (RN) My Orders Orders - ABRAHAN BURRELL NP Procedure Category Date Status Time Clear Liq Diet DIET 08/28/24 Transmitted Dinner * Gi Dvh [employer] Tr[employer] CONS 08/28/24 Transmitted 15:02 Date of Service: Aug 28, 2024 Billing Provider: ABRAHAN BURRELL NP Common Visit Codes: [id number] INP/OBS CARE(HIGH) ABRAHAN BURRELL NP Aug 28, 2024 16:45
== END 2024-08-28 15:00 | disposition home or self-care (01) | DRG 248 ==
LOC: ER 13:06 → OVERFLOW 16:35 → WEST WING 08-28 13:39
PROVIDERS: ATTEND Nurse Practitioner Acute Care
DX: A04.9 Bacterial intestinal infection, unspecified (principal); K92.0 Hematemesis; K76.0 Fatty (change of) liver, not elsewhere classified; N39.0 Urinary tract infection, site not specified; E66.01 Morbid (severe) obesity due to excess calories; I10 Essential (primary) hypertension; Z82.49 Family history of ischemic heart disease and other diseases of the circulatory system; Z83.3 Family history of diabetes mellitus; Z90.49 Acquired absence of other specified parts of digestive tract; Z68.38 Body mass index [BMI] 38.0-38.9, adult; K92.2 Gastrointestinal hemorrhage, unspecified
CPT/HCPCS: 36415; 74176; 80048; 80053; 80076; 81001; 82962; 83690; 84702; 85025; 85610; 85730; 96374; 96375; G0378; J2405; J2470; J3490

== ENCOUNTER 2025-05-16 21:04 | Emergency (ER) | payer MEDICAID ==
[~2025-05-16] VITALS: Ht 149.9 cm; Wt 86.8 kg
[2025-05-16 21:04] VITALS: BP 168/107; PULSE 98; RESP 18; TEMP 98.2; O2SAT 94
[~2025-05-16 21:04] MED LIST changes: -ACET500T58 PO; -CEPH250C PO; -NITR-87 PO; -POTA20TA24 PO; -ZOFR4T PO
--- NOTE | 2025-05-16 22:02 | ED.PDOC ---
Eye-HPI HPI Comments Year old female presents to the ED chief complaint right eye swelling times 24 hours. Patient states started in the left corner of the eye notes spread around the entire eye along with right-sided facial lump in pain tender to touch. Denies any known injury. Does state difficult to open eye due to the swelling some blurry vision. Denies fever, chills, nausea, vomiting, headache, loss of vision, or eye pain. Chief Complaint: Eye Problem Time Seen by MD: 21:19 Primary Care Provider: FRANCINE Reviewed Notes: Nurses Notes, Medications, Allergies Allergies: Coded Allergies: NO KNOWN ALLERGIES (Unverified , 01/06/19) Home Meds Active Scripts Prednisone (Prednisone) 20 Mg Tab, 20 MG PO DAILY@BREAKFAST for 5 Days, #5 MG Prov:NAVID LÓPEZ CARE ATTENDANT 05/16/25 Cefdinir (Cefdinir) 300 Mg Cap, 1 CAP PO BID for 7 Days, #14 CAP Prov:NAVID LÓPEZ 05/16/25 Cholestyramine (QUESTRAN POWDER) 4 Gm Pw, 4 GM PO DAILY for 10 Days, #40 POW Prov:PETR MONTEIRO MD 04/28/23 Mode of Arrival: Ambulatory Past Medical History PAST MEDICAL HISTORY: HTN Surgical History: BTL, Cholecystectomy, , Hernia Repair RN ENTEROSTOMAL History: No Pertinent RN ENTEROSTOMAL History Family History Family History: Family hx of DM, Family hx of Cancer, Family hx of HTN Social History Smoker: Non-Smoker Alcohol: Denies ETOH Use Drugs: Denies Drug Use Lives In: Home All Other Systems: Reviewed and Negative (see hpi) Physical Exam General Appearance: No Apparent Distress, Normal HEENT: Eye Lid (R) (Upper eyelid edema trace erythema), Pharynx Normal, TMs Normal Neck: Full Range of Motion, Non-Tender, Normal, Normal Inspection Respiratory: Lungs Clear, No Respiratory Distress, Normal Breath Sounds Cardiovascular: No Murmur, Normal Peripheral Pulses, Regular Rate/Rhythm Breast Exam: Deferred Gastrointestinal: Non Tender, Soft Genitalia: Deferred Pelvic: Deferred Rectal: Deferred Extremities: Normal capillary refill, No pedal edema Musculoskeletal : Apperance: Normal Neurologic: Alert, No Motor Deficits, Normal Affect, Normal Mood, No Sensory Deficits Cerebellar Function: Normal Reflexes: NOT DONE Skin: Dry, Normal Color, Warm Lymphatic: No Adenopathy, Other (Periauricular adenopathy right side) Was a procedure done? Was a procedure done?: No EENT DIFF Eye: Allergic, Bacterial, Orbital Cellulits, Periorbital Cellulits X-Ray, Labs, Meds, VS Vital Signs Date Time Temp Pulse Resp B/P (MAP) Pulse Ox O2 Delivery O2 Flow Rate FiO2 05/16/25 21:04 98.2 98 18 168/107 94 98.2 X-Ray, Labs, Meds, VS Comment PATIENT GIVEN ROCEPHIN 1 G IM AND DECADRON 10 MG IM. IMPROVEMENT REQUESTING DISCHARGE AT THIS TIME. SCRIPT TRIAL OF CEFDINIR ALONG WITH PREDNISONE ADVISED TAKE MEDICATION PRESCRIBED SIDE EFFECTS DISCUSSED. FOLLOW UP WITH HER PCP IN 2-3 DAYS FOR RE-EVALUATION IF UNABLE TO GET IN WITH PCP FOLLOW UP IN THE ER URGENT CARE. ADVISED ON ER RETURN PRECAUTIONS PATIENT INDICATES UNDERSTANDING AGREES WITH DISCHARGE PLAN OF CARE. Time of 1ST Reevaluation: 21:45 Reevaluation 1ST: Unchanged Time of 2ND Reevaluation: 22:55 Reevaluation 2ND: Improved Patient Education/Counseling: Diagnosis, Treatment, Prognosis, Need For Follow Up Family Education/Counseling: No Family Present SEPSIS Sepsis Screen Date sepsis recognized/suspect: May 16, 2025 Time Sepsis recognized/suspect: 2103 Recent Procedure: No On Antibiotic Therapy: No Respiratory Rate >20: No Heart Rate >90: Yes Temp<36 C (96.8 F) or >38.3 C: No SBP <90 or MAP <65 mmHG: No New Acute Mental Status Change: No Is the patient on CPAP, BIPAP,: No Vital Signs Date Time Temp Pulse Resp B/P (MAP) Pulse Ox O2 Delivery O2 Flow Rate FiO2 05/16/25 21:04 98.2 98 18 168/107 94 98.2 Departure 1 Departure Time of Disposition: 22:55 Impression: Primary Impression: Infection of right eye Disposition: 01 HOME / SELF CARE / HOMELESS Condition: Stable e-Prescriptions Prednisone (Prednisone) 20 Mg Tab 20 MG PO DAILY@BREAKFAST for 5 Days, #5 MG Prov: NAVID LÓPEZ 05/16/25 Cefdinir (Cefdinir) 300 Mg Cap 1 CAP PO BID for 7 Days, #14 CAP Prov: NAVID LÓPEZ 05/16/25 Discharged With: Self Critical Care Note Critical Care Time?: No Stability Stability form required: No NAVID LÓPEZ May 16, 2025 22:01
[2025-05-16] MEDS ORDERED: CEFD300C2 PO (22:07)
[2025-05-16] MEDS ORDERED: PRED20TA2 PO (22:07)
[2025-05-16] MEDS: cefTRIAXone SOD 1,000 MG VL IM ONE (22:15)
== END 2025-05-16 23:18 | disposition home or self-care (01) ==
LOC: ER 21:04
DX: H57.89 Other specified disorders of eye and adnexa (principal); I10 Essential (primary) hypertension; Z79.899 Other long term (current) drug therapy; Z98.890 Other specified postprocedural states; Z98.51 Tubal ligation status; Z90.49 Acquired absence of other specified parts of digestive tract; Z79.52 Long term (current) use of systemic steroids
CPT/HCPCS: 96372; 99284; J0696; J1100